=== PATIENT | female | born 1930 | race Caucasian/White ===

== ENCOUNTER 2016-08-27 16:25 | Inpatient (IN) | payer MEDICARE ==
[~2016-08-27] VITALS: Ht 149.9 cm; Wt 51.4 kg
[2016-08-27 12:25] VITALS: BP 150/67
[2016-08-27] MEDS ORDERED: MORPHINE 2 MG/ML 1ML SYRINGE As Ordered ONE (17:01)
[2016-08-27 17:16] LABS: BASO % 0.1 % (0.0-1.0); EOS % 0.4 % (0.0-3.0); LARGE UNSTAINED CELL # 0.1 K/mm3 (0.0-0.4); LARGE UNSTAINED CELL % 1.6 % (0.0-4.0); LYMPH # 0.9 K/mm3 (1.5-4.5); LYMPH % 10.7 % (24.0-44.0); MEAN CORPUSCULAR HEMOGLOBIN 32.4 pg (27.0-33.0); MEAN CORPUSCULAR HGB CONC 34.1 g/dl (32.0-36.5); MONO # 0.5 K/mm3 (0.0-0.8); MONO % 6.5 % (0.0-5.0); NEUTROPHILS # 6.8 K/mm3 (1.8-7.7); NEUTROPHILS % 80.7 % (36.0-66.0); RED CELL DISTRIBUTION WIDTH 12.2 % (11.5-14.5); WHITE BLOOD COUNT 8.4 K/mm3 (4.0-10.0)
[2016-08-27 17:30] LABS: PLATELET COUNT, AUTOMATED 92 k/mm3 (150-450)
[2016-08-27 17:31] LABS: CALCIUM LEVEL 8.5 MG/DL (8.8-10.2); CREATININE FOR GFR 1.48 MG/DL (0.55-1.02); GLOMERULAR FILTRATION RATE 35.6 (>32); POTASSIUM SERUM 4.2 MEQ/L (3.5-5.1)
--- NOTE | 2016-08-27 17:50 | REP ---
RIGHT HIP ONE-VIEW: 08/27/2016: Comparison: 02/09/2010. Single view shows intertrochanteric comminuted fracture. There is overlap of the distal major fragment with the femoral neck and displacement of the distal major fragment medially by a full shaft width as well as the avulsion and displacement of the lesser trochanter and rotation. Femoral head shows some mild flattening with degenerative changes including marked narrowing of the joint space larger rim osteophyte acetabulum and rim osteophytes femoral head. Vascular calcifications of the femoral artery noted. Pubic rami and acetabula without gross fracture. The right iliac bone and SI joint as well as the right aspect of the sacral ala intact. Impression: 1. Comminuted intertrochanteric fracture of the right hip with overlap of the distal major fragment of the subtrochanteric hip onto the inferior aspect of the femoral neck and avulsion with distraction and rotation of the lesser trochanter. Slight varus of the hip and advanced degenerative changes. No fracture of the femoral head or acetabulum. Signed by Andrew Oakley MD 08/27/2016 07:55 P
[2016-08-27] MEDS ORDERED: NS 1,000 ML IV SCH (18:07)
[2016-08-27] MEDS ORDERED: MOME50SP (18:29)
[2016-08-27] MEDS ORDERED: MELO15TA4 PO (18:29)
[2016-08-27] MEDS ORDERED: VITA200015 PO (18:31)
[2016-08-27] MEDS ORDERED: FISH1000 PO (18:31)
[2016-08-27] MEDS ORDERED: ASPI1TAB PO (18:31)
[2016-08-27] MEDS ORDERED: CALCTAB68 PO (18:31)
[2016-08-27] MEDS ORDERED: ATOR40TA PO (18:31)
[2016-08-27] MEDS ORDERED: BISO5TAB5 PO (18:32)
[2016-08-27] MEDS ORDERED: LISI-538 PO (18:32)
[2016-08-27] MEDS ORDERED: SYST1SOL OU (18:32)
[2016-08-27] MEDS ORDERED: ICAPCAP PO (18:32)
--- NOTE | 2016-08-27 18:42 | REP ---
RIGHT FEMUR SERIES, COMPLETE: 08/27/2016. Comparison: Single view right hip this date. Four views are provided including AP and lateral views of the mid to distal femur and two cross-table lateral views of the proximal femur and hip. There is a known comminuted intertrochanteric/subtrochanteric fracture of the hip with angulation and displacement. There is no subluxation or dislocation of the femoral head from the acetabulum. Remainder of the shaft of the femur is without a fracture. Bones are demineralized. Signed by Andrew Oakley MD 08/27/2016 07:55 P
--- NOTE | 2016-08-27 18:49 | REP ---
AP portable seated chest: 08/27/2016 Clinical history: Trauma. No prior pertinent study. Lungs are marginally adequate in the degree of inflation. There is no pleural effusion or acute infiltrate. Some minor basilar fibrotic changes are noted. No cardiomegaly, vascular redistribution or pulmonary edema. The aorta is calcified at the arch, mildly tortuous without aneurysm. Airway is intact. Skin fold projects over the left midchest. There is a linear artifact. Bones are demineralized with degenerative changes of the spine, shoulders and AC joints. No free air. Impression: 1. Bibasilar fibrotic change with borderline level of inflation, but no gross cardiomegaly, edema, effusion or dense consolidation. 2. Calcified aorta with some tortuosity but no aneurysm. 3. Bones demineralized. Signed by Andrew Oakley MD 08/27/2016 07:56 P
[2016-08-27] MEDS ORDERED: MORPHINE 4 MG/ML 1ML SYRINGE As Ordered ONE (19:24)
--- NOTE | 2016-08-27 19:28 | CR ---
DATE OF CONSULTATION: 08/27/2016 REASON FOR CONSULTATION: Right proximal femur fracture. HISTORY OF PRESENT ILLNESS: 85-year-old female who lives independently, otherwise fairly healthy, a patient of Dr. Marcus Parra who was running to get the telephone and tripped and fell where she lives in her home up in [facility], unable to get up, called her son on the phone, he came and got her, ambulance came brought her to [facility] evaluated by Dr. Ghosh, the emergency room physician and he called me when he found her to have a fracture of her proximal femur. The hospitalist is admitting her presently. She only complains of isolated soreness to her right hip area. Does not complain of any numbness or tingling of new onset as a result of her fall, did not lose consciousness, does not have neck pain, did not have any chest pain or shortness of breath that resulted in her fall or after her fall. This is clearly a trip and fall. Otherwise her past medical history is significant for hypercholesterolemia and asthma and macular degeneration, chronic thrombocytopenia, osteoporosis, history of a transient ischemic attack (TIA), and some left-sided sciatica and history of hematochezia in the past. Her past surgical history she has had a remote hysterectomy, she has had recent bilateral cataract surgeries. She does recall having a fracture of her ankle and a fracture of her wrist in the distant past treated with casts. She does not smoke, and does not drink alcohol. She is . She is here with one of her sons, originally she is from [facility]. Her son is retired . She does not normally use a walker or any ambulatory supports. ALLERGIES: Her allergies are to CODEINE causing nausea. MEDICATIONS AT HOME: - Mometasone nasal spray - meloxicam - baby aspirin - atorvastatin - vitamin D - calcium - Atrovent - I-caps - Systane - bisoprolol - lisinopril PHYSICAL EXAMINATION: I examined her. She is very pleasant, alert, spry 85-year-old slender female lying in her stretcher. She only complains of soreness in the right hip area in her thigh. VITAL SIGNS: Her vital signs she has a blood pressure of 160/62, with a pulse of 69, respirations 20, temperature is 99.2, oxygen sat 99% on room air. She weighs 49.44 kg. Body mass index is 22. HEENT: Was benign. She is normocephalic, atraumatic. NECK: Was non-tender. Clavicles are non-tender. EXTREMITIES: She can elevate both arms up over her head easily without any crepitance, deformity , pain or swelling or the shoulders, humeri, elbows, forearms, wrists or hands. There is no tenderness of her chest. Lower extremity examination showed a shortened right lower extremity with a strong dorsalis pedis pulse on both sides with excellent dorsiflexion, plantar flexion or motor strength of both ankles and toes and sensation was intact but she does say she has some numbness in her tips of her toes, but she says that is chronic for her, but she can otherwise feel me touch her feet both dorsally and plantarly with good pulses as mentioned. Her right thigh is tender around the hip and its tender and painful to deep palpation. LABORATORY DATA: Her laboratory studies shows a white blood count of 8.4 with a hematocrit of 26.5 with a platelet count of 92. Her glucose is 117, BUN 30, creatinine 1.48. Sodium was 145, potassium 4.2, chloride 111, bicarbonate 28, calcium 8.5. IMAGING: X-rays of her right femur and hip show a comminuted intertrochanteric subtrochanteric fracture with significant displacement and fracturing of the lesser trochanter. 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 IMPRESSION This is an 85-year-old otherwise fairly healthy independently ambulating female with a mechanical fall and an unstable displaced fracture of the proximal femur. I talked to her and I talked to her son about this and clearly this is a significant injury for her and I would recommend we try and fix her hip so we can get her comfortable as well as best chance of getting her back mobilized in a timely fashion, but that carries the risk of having surgery, which I discussed with her that there is a risk of infection, damage of nerves, blood vessels, anesthetic complications, heart attack, phlebitis, embolism amongst others associated with these types of surgeries and injuries and she understands that and she understands that she needs to have the surgery. She signed the consent and I discussed this with Dr. Eli, he was present during our discussion as well and he is evaluating her medically but feels that she is probably optimized to proceed with surgery and we will proceed when the operating room is available and she is felt safe to proceed.
--- NOTE | 2016-08-27 19:59 | HPEPDOC ---
General Date of Admission Aug 27, 2016 at 18:07 Chief Complaint The patient is a 85-year-old female Presented to the ER with complaints of right hip pain History of Present Illness Patient is a 85 year old female with a PMHx of HTN, DLP, CKD3, TIA (4- 5 years prior), Hx of Thrombocytopenia, Macular degeneration, Cataracts, who presented to the ER with right hip pain. Patient was at home and went to go answer the phone. She ran to the phone and bumped the table resulting in a fall. When she fell to the ground, she denies any head trauma or loss of consciousness. She noted that she was in excruciating pain and was unable to get back up. She rolled to the phone and called her son who brought her to the ER. Patient denies any chest pain, shortness of breath, cough, fever, chills, nausea , vomiting, abdominal pain, constipation, diarrhea or urinary symptoms. She notes that she has had a TIA about 5 years ago and was taken to [facility]. She is unsure why she had a stroke, but reported her symptoms of slurred speech had completely resolved. She has never had an AZ in the past, she also notes that she has not had a stress test in the past as well. At baseline, patient is able to go up and down a flight of stairs without shortness of breath or chest pain. She walks daily and has no limitations in her physical activity as she has reported. Home Medications Scheduled (Icaps) 1 Cap Cap 1 CAP PO DAILY (Reported) Aspirin (Aspirin 81) 81 Mg Tab 81 MG PO DAILY (Reported) Atorvastatin Calcium (Atorvastatin Calcium) 40 Mg Tab 40 MG PO QHS (Reported) Bisoprolol Fumarate (Bisoprolol Fumarate) 5 Mg Tab 5 MG PO DAILY (Reported) Calcium/Vitamin D (Calcium 600 + D 600-400 mg-Unit) 1 Tab Tab 1 TAB PO DAILY ( Reported) TAKES AT NOON Cholecalciferol (Vitamin D) 2,000 Unit Tab 2,000 UNIT PO DAILY (Reported) TAKES AT NOON Fish Oil (Fish Oil) 1,000 Mg Cap 1,000 MG PO DAILY (Reported) TAKES AT NOON Lisinopril (Lisinopril) 20 Mg Tab 20 MG PO DAILY (Reported) Meloxicam (Meloxicam) 15 Mg Tab 15 MG PO DAILY (Reported) NEW MEDICATION - HAS NOT STARTED YET Mometasone Furoate Monohydrate (Nasonex) 120 Loyal/17 Gm Naspr 2 SPRAY NA DAILY (Reported) NEW MEDICATION - HAS NOT STARTED YET Polyethylene Glycol (Systane 0.4-0.3 %) 15 Ml Talya 1 DROP OU QID (Reported) Allergies Coded Allergies: No Known Allergies (Unverified , 02/20/15) Past Medical History Medical History HTN, DLP, CKD3, TIA (4-5 years prior), Hx of Thrombocytopenia, Macular degeneration, Cataracts Surgical History Right arm surgery 3-4 years ago Left ankle (Fibula) Fracture Hysterectomy 1974 Bilateral cataract surgery <1 year prior Family History Family History Non-contributory Social History Social History - Denies the use of alcohol, tobacco or illicit drugs - Denies recent travel or sick contacts - Lives alone - Occupation; Worked in [employer] Review of Symptoms Other systems Constitutional: Denies weight loss, change in appetite, or recent trauma Eyes: No visual changes or eye pain Ears, Nose, Throat: Denies nose bleeds, or difficulty swallowing Cardiovascular: Denies chest pain, sweating, or orthopnea Respiratory: Denies cough, wheezing, or shortness of breath GI: Georges nausea, vomiting, abdominal pain, diarrhea or constipation : Denies pain with urination or frequency Musculoskeletal: Positive right hip pain Neuro / Psych: Denies muscle weakness or sensory loss Skin: No skin rashes noted All other review of systems negative; otherwise stated in history of present illness Vital Signs - Vitals: BP 160/62, HR 69, RR 20, Sat 99%RA, Temp 99.2F - General: Lying in bed, No acute distress, Speaking in full sentences, AAOx3 - HEENT: NC, AT, PERRLA, EOMI - CVS: RRR, +S1S2, - Lungs: Fair air entry bilaterally, Clear to auscultation, No wheezing / rales / rhonchi - Abdomen: Soft, Non-distended, Non-tender, + Bowel sounds x 4 - Extremities: + PPx4, No lower extremity edema, No calf tenderness - Hip: Right hip tenderness, decreased motion at right hip 2/2 pain - Neuro: No focal motor or sensory deficit - Skin: No visible rashes Laboratory Data Labs 24H Laboratory Tests 2 08/27/16 17:00: Anion Gap 6L, White Blood Count 8.4, Red Blood Count 3.84L, Hemoglobin 12.4, Hematocrit 36.5, Mean Corpuscular Volume 95.0, Mean Corpuscular Hemoglobin 32.4 , Mean Corpuscular Hemoglobin Concent 34.1, Red Cell Distribution Width 12.2, Platelet Count 92L, Neutrophils (%) (Auto) 80.7H, Lymphocytes (%) (Auto) 10.7L, Monocytes (%) (Auto) 6.5H, Eosinophils (%) (Auto) 0.4, Basophils (%) (Auto) 0.1 , Neutrophils # (Auto) 6.8, Lymphocytes # (Auto) 0.9L, Monocytes # (Auto) 0.5, Eosinophils # (Auto) 0.0, Basophils # (Auto) 0.0, Blood Urea Nitrogen 30H, Creatinine 1.48H, Sodium Level 145, Potassium Level 4.2, Chloride Level 111H, Carbon Dioxide Level 28, Calcium Level 8.5L, Glomerular Filtration Rate 35.6, Large Unclassified Cells # 0.1, Large Unclassified Cells % 1.6 CBC/BMP Laboratory Tests 08/27/16 17:00 Calcium Level 8.5 L, Red Blood Count 3.84 L, Mean Corpuscular Volume 95.0, Mean Corpuscular Hemoglobin 32.4, Mean Corpuscular Hemoglobin Concent 34.1, Red Cell Distribution Width 12.2, Neutrophils (%) (Auto) 80.7 H, Lymphocytes (%) (Auto) 10.7 L, Monocytes (%) (Auto) 6.5 H, Eosinophils (%) (Auto) 0.4, Basophils (%) ( Auto) 0.1, Neutrophils # (Auto) 6.8, Lymphocytes # (Auto) 0.9 L, Monocytes # ( Auto) 0.5, Eosinophils # (Auto) 0.0, Basophils # (Auto) 0.0 Plan / VTE VTE Prophylaxis Ordered?: Yes Plan Plan Right hip pain likely 2/2 comminuted intertrochanteric fracture of the right hip - Patient sustained a mechanical fall when she went to run for the phone - Denied head trauma, loss of consciousness or any symptoms prior or after the event - Physical reveals decreased range of motion and severe tenderness - Distal pulses intact and no distal deficits - XR R hip /: Comminuted intertrochanteric fracture of the right hp with overlap of the distal major fragment of the subtrochanteric hip - CXR 08/27: bibasilar fibrotic changes, no cardiomegaly, edema, effusion or consolidation, calcified aorta, no aneurysm - EKG with sinus bradycardia, no ST segment or T wave deviations - Case discussed with Dr. Marlyn Gr (Orthopedic) surgery; will go to OR today - Patient is currently medically optimized, and is a low surgical risk MIGUEL on CKD likely pre-renal etiology, possibly renal - Baseline Cr of 1.1, currently at 1.48 - Will check urine electrolytes and osmolality - Will hold Lisinorpil - Will c/w IV fluid hydration Hx of Thrombocytopenia - Platelet count currently is 92, Previous level of 135 (06/2015) - No evidence of bleeding at this time, will continue to monitor count HTN - will continue with home medications with holding parameters - Will c/w metoprolol, will hold Lisinopril (re: MIGUEL) DLP - c/w simvastatin TIA (4-5 years prior) - c/w aspirin Macular degeneration Cataracts - s/p surgery DVT prophylaxis - Will defer to orthopedic team Will sign out to SUSSY Jimenez MD Aug 27, 2016 19:59
--- NOTE | 2016-08-27 20:27 | EDDOCDS ---
Physician Documentation [facility] Name: Aruna Martinez Age: 85 yrs Sex: Female : 1930 Arrival Date: 08/27/2016 Time: 16:25 Bed 13 Private MD: Marcus Parra Disposition: 08/27/16 17:57 Hospitalization ordered by Errol Eli for Inpatient Admission. Preliminary diagnosis is Displaced intertrochanteric fracture of right femur. - Bed requested for 5 [place]. - Status is Inpatient Admission. sls1 - Condition is Stable. - Problem is new. - Symptoms are unchanged. Historical: - Allergies: codeine (Vomit); - Home Meds: 1. mometasone 50 mcg/actuation nasal spry 2 sprays once daily 2. meloxicam 15 mg oral tab 1 tab once daily 3. aspirin 81 mg Oral tab 1 tab once daily 4. atorvastatin 40 mg oral tab 1 tab once daily 5. Vitamin D Oral 2000 units daily 6. Calcium + Vitamin D 500 mg oral tab 7. vitamin C90-urjce acid 1000 mcg oral tab once daily 8. Atrovent 0.06 % Nasal spry q6h prn 9. Systane 0.4-0.3 % ophthalmic drop daily 10. ICaps AREDS 7,160-113-100 jhvm-yi-ohax oral TbEC daily 11. bisoprolol fumarate 5 mg oral tab 1 tab once daily (Last dose: 08/27/2016 08:00) 12. lisinopril 20 mg Oral tab 1 tab once daily - PMHx: Hypertension; TIA; Hypercholesterolemia; Osteoporosis; allergic rhinitis; thrombocytopenia; hematochezia; Macular Degeneration; left sided sciatica; - PSHx: Hysterectomy; Cataract Surgery- Bilateral; - Social history: Smoking status: Patient states was never smoker of tobacco. No barriers to communication noted, The patient speaks fluent Brazilian. - Family history: Not pertinent. - : The pt / caregiver states he / she is not on anticoagulants. Home medication list is obtained from the patient. - Exposure Risk Screening:: None identified. Vital Signs: 08/27 16:34 Resp 20; Temp 99.2(O); Weight 49.44 kg / 109 lbs (R); Height 4 ft. 11 in. (149.86 cm) jjr (R); Pain 7/10; 16:56 BP 160 / 62 RA Sitting (man/reg); Pulse 69; Pulse Ox 99% on R/A; jjr 18:15 BP 161 / 71 (auto/); jjr 18:16 Pulse 64 MON; Resp 18; Pulse Ox 99% on R/A; jjr 19:47 BP 199 / 94 (auto/); cf2 19:49 Pulse 86 MON; Pulse Ox 93% ; cf2 20:02 BP 188 / 88 (auto/); cf2 20:02 Pulse 80 MON; Pulse Ox 92% ; cf2 16:34 Body Mass Index 22.02 (49.44 kg, 149.86 cm) jjr MDM: 16:28 IV Saline Lock ordered. br1 16:28 Undress patient ordered. br1 16:28 morphine 2 mg IVP once; prn pain ordered. br1 16:29 CBC with Diff Ordered. EDMS 16:29 BMP Ordered. EDMS 16:51 Vital Signs ordered. br1 16:55 Hip,(1 View) Ordered. EDMS 16:55 Femur Ordered. EDMS 17:30 BED REQUEST+ADM ordered. EDMS 17:40 Chest, 1 View Ordered. EDMS 17:40 ECG WITH READING ER PHYS+CARDIAG ordered. EDMS 17:45 NS 0.9% 1000 ml IV at 100 mL/hr continuous ordered. br1 17:45 Conservation Specialist/Pulse Ox/q 30 min VS ordered. br1 17:47 Hip, Ap,Lat Ordered. EDMS 18:13 NPO DIET ordered. EDMS 18:14 SODIUM,RANDOM URINE Ordered. EDMS 18:14 CREATININE,RANDOM URINE Ordered. EDMS 18:14 OSMOLALITY,URINE Ordered. EDMS 18:16 Admission / Observation Status ordered. EDMS 18:20 Financial registration complete. gjb 19:06 [facility] Payment Agreement was scanned into [employer] and attached to record. gjb 19:18 morphine 4 mg IVP once ordered. br1 19:33 CBC WITH DIFFERENTIAL Ordered. EDMS 19:33 COMPLETE COMPHRENSIVE METABOLI Ordered. EDMS 19:33 MAGNESIUM LEVEL Ordered. EDMS Administered Medications: 17:06 Drug: morphine 2 mg [morphine 2 mg/mL intravenous cartridge (1 mL)] Route: IVP; Site: jr left antecubital; 18:22 Drug: NS 0.9% 1000 ml [sodium chloride 0.9 % intravenous solution] Route: IV; Rate: 100 ld5 mL/hr; Site: left antecubital; 19:28 Drug: morphine 4 mg [morphine 4 mg/mL intravenous cartridge (1 mL)] Route: IVP; Site: cf2 left antecubital; Signatures: Dispatcher [employer] Timothy Key MD MD br1 Greta Appiah RN RN jjr Strong, Shannon, RN RN [facility] Elham Bustamante Christina, RN RN cf2 Yogi Almanza RN RN sa Dickerson, Laura RN ld5 The chart was reviewed and I authenticate all verbal orders and agree with the evaluation and treatment provided.Attachments: 19:06 [facility] Payment Agreement amanda MTDD
--- NOTE | 2016-08-27 20:27 | EDDOCDS ---
Nurse's Notes [facility] Name: Aruna Martinez Age: 85 yrs Sex: Female : 1930 Arrival Date: 08/27/2016 Time: 16:25 Bed 13 Private MD: Marcus Parra Diagnosis: Displaced intertrochanteric fracture of right femur Presentation: 08/27 16:30 Presenting complaint: EMS states: fell from standing position while rushing to get the jjr telephone HOOK UP, immediate pain to right lateral thigh. 2.5 mg IV morphine at 1535 and 1542, 10# traction to right leg. Adult Sepsis Screening: The patient does not have new or worsening altered mentation. Patient's respiratory rate is less than 22. Systolic blood pressure is greater than 100. Patient has a qSOFA score of 0- Negative Sepsis Screen. Suicide/Homicide risk assessment- the patient denies having any suicidal and/or homicidal ideations and does not present with any other emotional, behavioral or mental health complaints. Status: Patient is not a customer service advisor or dependent. Transition of care: patient was not received from another setting of care. 16:30 Acuity: AMANDA Level 3 jjr 16:30 Method Of Arrival: Ambulance jjr Triage Assessment: 16:42 General: Appears in no apparent distress, slender, well nourished, well groomed, jjr Behavior is anxious, appropriate for age. Pain: Location: lateral aspect of right thigh. Musculoskeletal: Range of motion limited in right hip. Historical: - Allergies: codeine (Vomit); - Home Meds: 1. mometasone 50 mcg/actuation nasal spry 2 sprays once daily 2. meloxicam 15 mg oral tab 1 tab once daily 3. aspirin 81 mg Oral tab 1 tab once daily 4. atorvastatin 40 mg oral tab 1 tab once daily 5. Vitamin D Oral 2000 units daily 6. Calcium + Vitamin D 500 mg oral tab 7. vitamin [id number]-mhljp acid 1000 mcg oral tab once daily 8. Atrovent 0.06 % Nasal spry q6h prn 9. Systane 0.4-0.3 % ophthalmic drop daily 10. ICaps AREDS 7,160-113-100 [id number] oral TbEC daily 11. bisoprolol fumarate 5 mg oral tab 1 tab once daily (Last dose: 08/27/2016 08:00) 12. lisinopril 20 mg Oral tab 1 tab once daily - PMHx: Hypertension; TIA; Hypercholesterolemia; Osteoporosis; allergic rhinitis; thrombocytopenia; hematochezia; Macular Degeneration; left sided sciatica; - PSHx: Hysterectomy; Cataract Surgery- Bilateral; - Social history: Smoking status: Patient states was never smoker of tobacco. No barriers to communication noted, The patient speaks fluent Ukrainian. - Family history: Not pertinent. - : The pt / caregiver states he / she is not on anticoagulants. Home medication list is obtained from the patient. - Exposure Risk Screening:: None identified. Screenin:29 Fall Risk. jjr 18:24 Screening information is obtained from the patient. Fall risk: At risk due to injury, jjr The following interventions are performed due to a positive Fall Risk Screen: added to special handling. Abuse/DV Screen: The patient / caregiver reports he/she is: not in a situation that causes fear, pain or injury. Nutritional screening: No deficits noted. home support is adequate. 18:34 Assistance ADL's: requires no assistance with activities of daily living. Advance jjr Directives: Currently, there is a health care proxy, Yogi Martinez. There is no active DNR order. Assessment: 17:38 General: Appears in no apparent distress, slender, well nourished, well groomed, jjr Behavior is appropriate for age. Neurological: No deficits noted. Respiratory: Airway is patent Respiratory effort is even, unlabored, Respiratory pattern is regular. Derm: No deficits noted. Musculoskeletal: Range of motion limited in right hip Reports pain in lateral aspect of right thigh. 18:32 General: Appears in no apparent distress, Behavior is appropriate for age. jjr Neurological: No deficits noted. Cardiovascular: Rhythm is sinus rhythm. Respiratory: No deficits noted. Derm: No deficits noted. 20:11 Reassessment: Patient states symptoms have improved. Adult Sepsis Screening: The cf2 patient does not have new or worsening altered mentation. Patient's respiratory rate is less than 22. Systolic blood pressure is greater than 100. Patient has a qSOFA score of 0- Negative Sepsis Screen. Pain: Location: buttocks. EENT: No deficits noted. GI: No deficits noted. : No deficits noted. Vital Signs: 16:34 Resp 20; Temp 99.2(O); Weight 49.44 kg (R); Height 4 ft. 11 in. (149.86 cm) (R); Pain jjr 7/10; 16:56 BP 160 / 62 RA Sitting (man/reg); Pulse 69; Pulse Ox 99% on R/A; jjr 18:15 BP 161 / 71 (auto/); jjr 18:16 Pulse 64 MON; Resp 18; Pulse Ox 99% on R/A; jjr 19:47 BP 199 / 94 (auto/); cf2 19:49 Pulse 86 MON; Pulse Ox 93% ; cf2 20:02 BP 188 / 88 (auto/); cf2 20:02 Pulse 80 MON; Pulse Ox 92% ; cf2 16:34 Body Mass Index 22.02 (49.44 kg, 149.86 cm) jr Vitals: 16:34 Log In Time N/A - ambulance arrival. r ED Course: 16:26 Patient visited by Deborah Beasley PCA. rs6 16:26 Marcus Parra is Private Physician. rs6 16:26 Patient moved to Waiting rs6 16:26 Patient moved to 13 rs6 16:27 Timothy Ghosh MD is Attending Physician. br1 16:31 Patient visited by Timothy Ghosh MD. br1 16:32 Triage Initiated jjr 17:01 BMP Sent. jjr 17:01 CBC with Diff Sent. jjr 17:39 Patient visited by Greta Appiah, PERRY. jjr 17:57 Errol Eli is Hospitalizing Provider. br1 18:18 Patient visited by Paco Hobson PCA. jrd 18:18 EKG done. Reviewed by Errol Eli. jrd 18:22 ekg monitor tech on. Pulse ox on. NIBP on. ld5 18:23 Hip,(1 View) Returned. EDMS 18:33 Patient visited by Greta Appiah, PERRY. jjr 19:03 Amy Eason,RN is Primary Nurse. cf2 19:03 Patient visited by Amy Eason,PERRY. cf2 19:06 [facility] Payment Agreement was scanned into [employer] and attached to record. gjb 19:18 Femur Returned. EDMS 19:18 Chest, 1 View Returned. EDMS 19:49 The patient / caregiver is instructed regarding the plan of care and ED course. Patient cf2 has correct armband on for positive identification. Placed in gown. Bed in low position. Call light in reach. Side rails up X 1. Side rails up X2. Property :Personal belongings accompany Pt. Door closed. Noise minimized. Visitors limited. Lights dimmed. Moved to private room. Verbal reassurance given. Warm blanket given. Pillow given. Head of bed elevated. Diet: Patient is NPO. 20:12 Inserted saline lock: 18 gauge in left antecubital area and blood collected. The cf2 patient tolerated the procedure well. No procedures done that require assistance. Administered Medications: 17:06 Drug: morphine 2 mg [morphine 2 mg/mL intravenous cartridge (1 mL)] Route: IVP; Site: jjr left antecubital; 18:22 Drug: NS 0.9% 1000 ml [sodium chloride 0.9 % intravenous solution] Route: IV; Rate: 100 ld5 mL/hr; Site: left antecubital; 19:28 Drug: morphine 4 mg [morphine 4 mg/mL intravenous cartridge (1 mL)] Route: IVP; Site: cf2 left antecubital; Order Results: Lab Order: CBC with Diff; SPEC'M 08/27/16 17:00 Test: WHITE BLOOD COUNT; Value: 8.4; Range: 4.0-10.0; Units: K/mm3; Status: F Test: RED BLOOD COUNT; Value: 3.84; Range: 4.00-5.40; Abnormal: Below low normal; Units: M/mm3; Status: F Test: HEMOGLOBIN; Value: 12.4; Range: 12.0-16.0; Units: g/dl; Status: F Test: HEMATOCRIT; Value: 36.5; Range: 36.0-47.0; Units: %; Status: F Test: MEAN CORPUSCULAR VOLUME; Value: 95.0; Range: 80.0-96.0; Units: fl; Status: F Test: MEAN CORPUSCULAR HEMOGLOBIN; Value: 32.4; Range: 27.0-33.0; Units: pg; Status: F Test: MEAN CORPUSCULAR HGB CONC; Value: 34.1; Range: 32.0-36.5; Units: g/dl; Status: F Test: RED CELL DISTRIBUTION WIDTH; Value: 12.2; Range: 11.5-14.5; Units: %; Status: F Test: PLATELET COUNT, AUTOMATED; Value: 92; Range: 150-450; Abnormal: Below low normal; Units: k/mm3; Status: F Test: NEUTROPHILS %; Value: 80.7; Range: 36.0-66.0; Abnormal: Above high normal; Units: %; Status: F Test: LYMPH %; Value: 10.7; Range: 24.0-44.0; Abnormal: Below low normal; Units: %; Status: F Test: MONO %; Value: 6.5; Range: 0.0-5.0; Abnormal: Above high normal; Units: %; Status: F Test: EOS %; Value: 0.4; Range: 0.0-3.0; Units: %; Status: F Test: BASO %; Value: 0.1; Range: 0.0-1.0; Units: %; Status: F Test: LARGE UNSTAINED CELL %; Value: 1.6; Range: 0.0-4.0; Units: %; Status: F Test: NEUTROPHILS #; Value: 6.8; Range: 1.8-7.7; Units: K/mm3; Status: F Test: LYMPH #; Value: 0.9; Range: 1.5-4.5; Abnormal: Below low normal; Units: K/mm3; Status: F Test: MONO #; Value: 0.5; Range: 0.0-0.8; Units: K/mm3; Status: F Test: EOS #; Value: 0.0; Range: 0.0-0.50; Units: K/mm3; Status: F Test: BASO #; Value: 0.0; Range: 0.0-0.2; Units: K/mm3; Status: F Test: LARGE UNSTAINED CELL #; Value: 0.1; Range: 0.0-0.4; Units: K/mm3; Status: F Lab Order: [facility]; SPEC'M 08/27/16 17:00 Test: GLUCOSE, FASTING; Value: 117; Range: 83-110; Abnormal: Above high normal; Units: MG/DL; Status: F Test: BLOOD UREA NITROGEN; Value: 30; Range: 7-18; Abnormal: Above high normal; Units: MG/DL; Status: F Test: CREATININE FOR GFR; Value: 1.48; Range: 0.55-1.02; Abnormal: Above high normal; Units: MG/DL; Status: F Test: GLOMERULAR FILTRATION RATE; Value: 35.6; Range: >32; Status: F Test: SODIUM LEVEL; Value: 145; Range: 136-145; Units: MEQ/L; Status: F Test: POTASSIUM SERUM; Value: 4.2; Range: 3.5-5.1; Units: MEQ/L; Status: F Test: CHLORIDE LEVEL; Value: 111; Range: 98-107; Abnormal: Above high normal; Units: MEQ/L; Status: F Test: CARBON DIOXIDE LEVEL; Value: 28; Range: 21-32; Units: MEQ/L; Status: F Test: ANION GAP; Value: 6; Range: 8-16; Abnormal: Below low normal; Units: MEQ/L; Status: F Test: CALCIUM LEVEL; Value: 8.5; Range: 8.8-10.2; Abnormal: Below low normal; Units: MG/DL; Status: F Test Note: ; Units are mL/min/1.73 m2 Chronic Kidney Disease Staging per NKF: Stage I & II GFR >=60 Normal to Mildly Decreased Stage III GFR 30-59 Moderately Decreased Stage IV GFR 15-29 Severely Decreased Stage V GFR <15 Very Little GFR Left ESRD GFR <15 on LOSS PREVENTION RESEARCH ENGINEER Radiology Order: Hip,(1 View) Test: Hip,(1 View) REASON FOR EXAMINATION: Trauma; RIGHT HIP ONE-VIEW: 08/27/2016:; ; Comparison: 02/09/2010.; ; Single view shows intertrochanteric comminuted fracture. There is overlap of the; distal major fragment with the femoral neck and displacement of the distal major; fragment medially by a full shaft width as well as the avulsion and displacement; of the lesser trochanter and rotation. Femoral head shows some mild flattening; with degenerative changes including marked narrowing of the joint space larger; rim osteophyte acetabulum and rim osteophytes femoral head. Vascular; calcifications of the femoral artery noted. Pubic rami and acetabula without; gross fracture. The right iliac bone and SI joint as well as the right aspect of; the sacral ala intact.; ; Impression:; ; 1. Comminuted intertrochanteric fracture of the right hip with overlap of the; distal major fragment of the subtrochanteric hip onto the inferior aspect of the; femoral neck and avulsion with distraction and rotation of the lesser trochanter.; Slight varus of the hip and advanced degenerative changes. No fracture of the; femoral head or acetabulum.; ; ; Signed by; Andrew Oakley MD 08/27/2016 07:55 P; Radiology Order: Femur Test: Femur REASON FOR EXAMINATION: Trauma; RIGHT FEMUR SERIES, COMPLETE: 08/27/2016.; ; Comparison: Single view right hip this date.; ; Four views are provided including AP and lateral views of the mid to distal femur; and two cross-table lateral views of the proximal femur and hip. There is a; known comminuted intertrochanteric/subtrochanteric fracture of the hip with; angulation and displacement. There is no subluxation or dislocation of the; femoral head from the acetabulum. Remainder of the shaft of the femur is without; a fracture. Bones are demineralized.; ; ; Signed by; Andrew Oakley MD 08/27/2016 07:55 P; Radiology Order: Chest, 1 View Test: Chest, 1 View REASON FOR EXAMINATION: pre-op; AP portable seated chest: 08/27/2016; ; Clinical history: Trauma.; ; No prior pertinent study.; ; Lungs are marginally adequate in the degree of inflation. There is no pleural; effusion or acute infiltrate. Some minor basilar fibrotic changes are noted. No; cardiomegaly, vascular redistribution or pulmonary edema. The aorta is calcified; at the arch, mildly tortuous without aneurysm. Airway is intact. Skin fold; projects over the left midchest. There is a linear artifact. Bones are; demineralized with degenerative changes of the spine, shoulders and AC joints.; No free air.; ; Impression:; ; 1. Bibasilar fibrotic change with borderline level of inflation, but no gross; cardiomegaly, edema, effusion or dense consolidation.; ; 2. Calcified aorta with some tortuosity but no aneurysm.; ; 3. Bones demineralized.; ; ; Signed by; Andrew Oakley MD 08/27/2016 07:56 P; Outcome: 17:57 Decision to Hospitalize by Provider. br1 20:14 Discharge Assessment: Patient awake, alert and oriented x 3. No cognitive and/or cf2 functional deficits noted. Patient verbalized understanding of disposition instructions. Patient awake and alert. patient administered narcotics - yes. Patient was admitted to the hospital or transferred to another facility. The following High Risk Discharge criteria are identified: None. Admitted to OR. Condition: good. No special radiology studies were completed. Property :Personal belongings accompany Pt. 20:26 Patient left the ED. sls1 Signatures: Dispatcher [employer] EDMS Timothy Ghosh MD MD br1 Greta Appiah, RN RN Julisa GilmoreRN RN ld5 Abril Noyola RN RN sls1 Paco Hobson, SENIOR APPLICATIONS DEVELOPER SENIOR APPLICATIONS DEVELOPER jrd Deborah Beasley, SENIOR APPLICATIONS DEVELOPER SENIOR APPLICATIONS DEVELOPER rs6 Elham Bustamante Christina,RN RN cf2 Corrections: (The following items were deleted from the chart) 18:18 18:17 EKG done. (by ED staff). Reviewed by Timothy ruiz jrd BAKARI
[2016-08-27] MEDS ORDERED: ceFAZolin 1GM INJ (J0690) As Ordered ONE (21:04)
[2016-08-27] MEDS ORDERED: GLYCOPYRROLATE INJ 0.2 MG/ML 2 ML VIAL As Ordered ONE (21:54)
[2016-08-27] MEDS ORDERED: MIDAZOLAM INJ 2 MG/2 ML VIAL (J2250) As Ordered ONE (21:54)
[2016-08-27] MEDS ORDERED: PROPOFOL 200 MG/20 ML VIAL As Ordered ONE (21:54)
[2016-08-27] MEDS ORDERED: ePHEDrine SULFATE 25 MG/5 ML(5MG/ML) SYRINGE As Ordered ONE (21:54)
[2016-08-27] MEDS ORDERED: fentaNYL 250 MCG/5 ML INJECTION (J3010) As Ordered ONE (21:54)
[2016-08-27] MEDS ORDERED: LIDOCAINE 2% INJ 100 MG/5 ML SDV (FOR ANES.) As Ordered ONE (21:54)
[2016-08-27] MEDS ORDERED: ROCURONIUM BROMIDE 50 MG/5 ML VIAL As Ordered ONE (21:54)
[2016-08-27] MEDS ORDERED: NEOSTIGMINE 1MG/ML 5 ML SYRINGE (J2710) As Ordered ONE (21:54)
[2016-08-27] MEDS ORDERED: ONDANSETRON 4MG/2ML VIAL (J2405) As Ordered ONE ×2 (22:01→23:54)
[2016-08-27] MEDS ORDERED: dexameTHASONE 4 MG/ML 1ML VIAL (J1100) As Ordered ONE ×2 (22:01)
[2016-08-27] MEDS ORDERED: ceFAZolin 1GM INJ (J0690) IR ONE (22:03)
[2016-08-27] MEDS ORDERED: ceFAZolin 1GM INJ (J0690) IV ONE (22:05)
[2016-08-27] MEDS ORDERED: HYDROmorphone HCL 1 MG/ML SYRINGE (J1170) IV PRN ×2 (23:45)
[2016-08-27] MEDS ORDERED: WARFARIN SOD 5 MG TAB PO ONE (23:45)
[2016-08-27] MEDS ORDERED: LR 1,000 ML IV SCH (23:45)
[2016-08-27] MEDS ORDERED: ONDANSETRON 4MG/2ML VIAL (J2405) IV PRN (23:45)
[2016-08-27] MEDS ORDERED: fentaNYL 100 MCG/2 ML INJECTION (J3010) IV PRN (23:45)
[2016-08-27] MEDS ORDERED: fentaNYL 100 MCG/2 ML INJECTION (J3010) As Ordered ONE (23:54)
[2016-08-28] VITALS (10 sets, daily range): BP systolic 91–150; BP diastolic 44–67
[2016-08-28] MEDS: SENOKOT S TAB PO SCH ×3 (02:12→21:53)
[2016-08-28] MEDS: ATORVASTATIN 20 MG TAB PO SCH ×2 (02:12→21:53)
[2016-08-28] MEDS: ACETAMINOPHEN TAB 650MG DOSE (2X325MG) PO PRN (06:03)
[2016-08-28] MEDS: ceFAZolin SOD 1 GM in D5W MINI-BAG PLUS 50 ML IV SCH ×3 (06:05→22:01)
[2016-08-28 06:52] LABS: LARGE UNSTAINED CELL % 0.3 % (0.0-4.0); LYMPH # 0.5 K/mm3 (1.5-4.5); LYMPH % 3.7 % (24.0-44.0); MEAN CORPUSCULAR HEMOGLOBIN 31.7 pg (27.0-33.0); MEAN CORPUSCULAR HGB CONC 33.1 g/dl (32.0-36.5); MEAN CORPUSCULAR VOLUME 95.8 fl (80.0-96.0); MONO # 0.3 K/mm3 (0.0-0.8); MONO % 1.9 % (0.0-5.0); NEUTROPHILS # 13.5 K/mm3 (1.8-7.7); NEUTROPHILS % 94.1 % (36.0-66.0); PLATELET COUNT, AUTOMATED 100 k/mm3 (150-450); RED CELL DISTRIBUTION WIDTH 12.4 % (11.5-14.5); WHITE BLOOD COUNT 14.3 K/mm3 (4.0-10.0)
[2016-08-28 06:55] LABS: INR 1.17
[2016-08-28] MEDS: ONDANSETRON 4 MG TAB (S0181) PO PRN (07:24)
--- NOTE | 2016-08-28 07:30 | RO ---
DATE OF PROCEDURE: 08/27/2016 PREPROCEDURE DIAGNOSIS: Right proximal intertrochanteric subtrochanteric femur fracture. POSTPROCEDURE DIAGNOSIS: Right proximal intertrochanteric subtrochanteric femur fracture. PROCEDURE: Open reduction internal fixation with long trochanteric femoral nail with two distal interlocks right proximal femur subtrochanteric intertrochanteric fracture. SURGEON: Dr. Sandra Flower CORPORATE STRATEGY INTERN: ANESTHESIA: General endotracheal tube anesthesia. COMPLICATIONS: None. ESTIMATED BLOOD LOSS: 150 mL. SPECIMENS: None. FINDINGS: She had a significant flexion contracture of the hip secondary to osteoarthritis making reduction difficult. She also had a very significant butterfly fragment anteriorly involving a large portion of the greater trochanter. PROCEDURE: Antibiotics were given intravenously preoperatively and successful general endotracheal tube anesthetic was established. She was given 1 gram of Kefzol and a Guzman catheter was established. Then she was placed onto the fracture table and closed reduction of the fracture was obtained. It was noteworthy that there was some significant posterior sag and the proximal fragment was significantly flexed with a large butterfly fragment and some significant comminution right at the base of the femoral neck. This comminution extended down below the lesser trochanter. We were able to get a reasonable reduction using a crutch to help as well as having to elevate the distal fragment to match the flexion deformity of her proximal fragment and eventually will get a reasonable reduction. The right hip area was then prepped and draped in the usual sterile fashion. Then after appropriate time out again, a small 2 inch incision was made above the greater trochanter. Bovie cautery was used to coagulate crossing vessels down to the tensor fascia, it was then divided and aligned with the skin incision. Then the starter awl was utilized to try to get at the tip of the trochanter but I had to go back and fourth between the anterior and the lateral views in order to get an adequate starting point near the anterior one-third, posterior two-third junction of the trochanter as well as I had to also simultaneously manipulate the fracture with my elbow and my other right hand. As I advanced the ball tip guide kylah through the starter awl to eventually able to get across the fracture site. I confirmed that I was down the center of the femoral shaft down toward the knee by the fluoroscopic imaging in AP and lateral planes. We then estimated the length of the kylah. 320 mm seemed to be the appropriate length. I drilled the proximal starter hole with the large reamer but I did not advance it all the way down to the lesser trochanter because of the comminuted nature of the proximal portions of the fracture. At this point, I did ream up to 12 mm. The kylah was then loaded on the insertion handle on the back table, then I inserted the kylah easily across the fracture site. Then we estimated the insertion depth to match the femoral neck. Then the proximal drill sleeve for the cephalic portion of the femoral nail was inserted on the handle and then a small skin incision was made down to the bone, then I advanced the drill sleeve and then I advanced the threaded guidewire up the femoral neck on the AP and then on the lateral planes. We required a bit of manipulation of this wire to finally get in close to the center of the femoral head just slightly oblique across the femoral neck because of the flexion contracture of the proximal femur but I could not get it absolutely parallel perfect, but I got a very reasonable bite and alignment into the femoral neck and femoral head. Once I confirmed the depth on the AP and lateral planes, we elected to drill to 95 and use a 95 mm long twisty nail. I then drilled under fluoroscopic guidance and then the 95 mm length twisty blade was inserted. Then I confirmed good position, the locked it proximally and I did not back it off so it would not slide. I then removed the insertion handle, got good x-rays to make sure we were in good position. The fracture was reasonably well reduced. On the lateral view, there was a butterfly fragment that kicked out anteriorly as if there was a flexion contracture component but I felt the overall alignment of the construct was very reasonable, I did not elect to open the fracture site nor to reduce that. I felt this should heal uneventfully. We then obtained perfect circles on the distal interlocking screws and I elected to use the proximal static interlock and then the dynamic interlock. Once I got good alignment, I used a free hand technique using the fluoroscope to make small stab incision and drilled across the interlock holes distally, first the proximal static hole and then the more distal dynamic hole. I measured and then placed the screws and confirmed good position in AP and lateral planes. The traction was reduced slightly before I put the distal interlocks in and I held her foot in neutral rotation. Satisfied with the overall alignment and the position of the hardware, I then copiously irrigated the wounds. Proximally I closed the tensor fascia with interrupted #1 PDS sutures, subdermal tissues were closed with interrupted #2-0 PDS suture and then the skin incisions were closed with marcial covered by Adaptic dry sterile bulky dressing. She was then awakened from general endotracheal tube anesthesia and then transferred off the fracture table to her bed and to recovery room in stable condition. There were no intraoperative complications.
[2016-08-28] MEDS: OCUVITE 1 TAB PO SCH (09:00)
[2016-08-28 09:03] LABS: ALBUMIN 2.5 GM/DL (3.2-5.2); BILIRUBIN,TOTAL 0.4 MG/DL (0.2-1.0); CALCIUM LEVEL 7.6 MG/DL (8.8-10.2); CREATININE FOR GFR 1.79 MG/DL (0.55-1.02); GLOMERULAR FILTRATION RATE 28.6 (>32); MAGNESIUM LEVEL 1.9 MG/DL (1.8-2.4); POTASSIUM SERUM 4.9 MEQ/L (3.5-5.1)
[2016-08-28] MEDS: traMADol 50 MG TAB PO PRN ×3 (09:58→21:54)
[2016-08-28] MEDS: ASPIRIN 81 MG ENTERIC TAB PO SCH (09:58)
[2016-08-28] MEDS: BISOPROLOL FUMARATE 5 MG TAB PO SCH (09:59)
[2016-08-28] MEDS: MIRALAX *UNIT DOSE* 17GM PACKET PO SCH (10:00)
--- NOTE | 2016-08-28 10:50 | ECGEPIP ---
Stationary ECG Study [facility] - ED Test Date: 2016-08-27 Pat Name: LIZETTE WILSON Department: Room: [place] [address] Gender: F Store Promoter: joseph : [id number] Requested By: ALYSSA Flores Order Number: [id number] Reading MD: Kristin Barbosa Measurements Intervals [place] Rate: 58 P: 61 OR: 118 QRS: 48 QRSD: 80 T: 70 QT: 413 QTc: 409 Interpretive Statements SINUS BRADYCARDIA WITH SHORT OR INTERVAL POSSIBLE LEFT ATRIAL ENLARGEMENT NSTTW ABNORMALITY NO PRIOR FOR COMPARISON Electronically Signed On 08-28-2016 10:50:31 EST by Kristin Barbosa
[2016-08-28] MEDS ORDERED: NS 1,000 ML IV SCH (11:00)
--- NOTE | 2016-08-28 11:28 | REP ---
Right hip: Five views. History: Right hip fracture. 2 minutes 53 seconds of fluoroscopy time is reported. Findings: A sequence of five fluoroscopically obtained last image hold spot radiographs of the right femur document intramedullary kylah and pin fixation of right proximal femur fracture. Signed by Pradeep Hernandez MD 08/28/2016 11:46 A
--- NOTE | 2016-08-28 11:39 | IPN ---
DATE: 08/28/2016 85-year-old female seen at bedside. No overnight issues reported. Resting comfortably. No chest pain. No nausea, vomiting. No shortness breath. OBJECTIVE: Temperature is 98.3, pulse 76 and regular, respiratory rate 16, blood pressure (BP) 142/65, SpO2 is 95% on room air. General: The patient appears to be in no acute distress, is alert and oriented. HEENT: Unremarkable. Lungs: Clear. Heart: Regular rate and rhythm. Abdomen: Soft. Extremities: no edema, no calf tenderness White count 14.3, hemoglobin 9.4, and platelets 100,000. Sodium is 146, potassium 4.9, chloride 113, bicarbonate 22, anion gap 11, BUN is 33, creatinine is 1.79, glucose is 200, AST 24, ALT 21, alkaline phosphatase 45. INR 1.17. ASSESSMENT AND PLAN: 1. Right hip fracture status post repair. This was secondary to a mechanical fall and she is postoperative day #1. Appreciate orthopedics' input regarding, pain control, bowel regimen, as well as anticoagulation. 2. Acute kidney injury superimposed chronic kidney disease (CKD). She does have a little bit of worsening of her creatinine. We will go ahead and continue to hold her lisinopril. We will give her some normal saline at 80 mL/hr for one more liter and try to avoid nephrotoxic drugs. Her baseline however, does appear to be at 1.1 with her creatinine. We will follow this daily 3. History of thrombocytopenia. No evidence of bleeding. We will continue to monitor. 4. Hypertension, stable. Lisinopril was currently on hold due to a acute kidney injury (MIGUEL). We will continue with metoprolol and hold parameters. 5. Dyslipidemia. Continue on simvastatin 6. History of transient ischemic attack (TIA). No significant deficits. Continue with aspirin. 7. Macular degeneration, stable. 8. Cataracts status post surgery. 9. Deep venous thrombosis (DVT) prophylaxis. Per orthopedics. DISPOSITION: Would anticipate physical therapy to be involved with her in the next 24 hours. We will continue to monitor her renal profile and try to avoid nephrotoxic drugs as outlined above. She appears to be getting along well otherwise. [facility]
[2016-08-28] MEDS: ONDANSETRON 4MG/2ML VIAL (J2405) IV PRN ×2 (12:20→22:01)
--- NOTE | 2016-08-28 12:35 | REP ---
Right hip : Two views. History: Trochanteric nail. Right hip. Comparison study : August 27, 2016. Findings: An intramedullary kylah and femoral neck screw are seen in place transfixing the subtrochanteric fracture of the right femur. There is postoperative air in the adjacent soft tissues and lateral skin marcial are seen. Moderate osteoarthritis is seen in the right hip. Signed by Pradeep Hernandez MD 08/28/2016 07:25 P
--- NOTE | 2016-08-28 12:36 | REP ---
Right femur series: Two views. History: Open reduction internal fixation. Findings: AP and lateral views of the right femur demonstrate an intramedullary kylah in place with two transverse fixation screws. Lateral skin marcial are seen. Diffuse osteopenia is noted. Signed by Pradeep Hernandez MD 08/28/2016 07:25 P
[2016-08-28] MEDS ORDERED: MOBI15TA PO (13:05)
[2016-08-28] MEDS: FLUTICASONE PROP 0.05% NASAL SPRAY 16 GM (FLONASE) SCH (14:19)
[2016-08-28] MEDS: VITAMIN D 1,000 INTERNATIONAL UNITS TABLET PO SCH (14:22)
[2016-08-28] MEDS: POLYVINYL ALCOHOL OPHTH SOLN 15 ML(LIQUITEARS) OU SCH (16:38)
[2016-08-28] MEDS ORDERED: WARFARIN SOD 5 MG TAB PO ONE (17:00)
[2016-08-28] MEDS: CEPACOL LOZENGE PO PRN (17:06)
[2016-08-29] VITALS (7 sets, daily range): BP systolic 92–129; BP diastolic 42–76
[2016-08-29] MEDS: ONDANSETRON 4 MG TAB (S0181) PO PRN ×2 (06:37→13:33)
[2016-08-29] MEDS: CEPACOL LOZENGE PO PRN (06:38)
[2016-08-29 06:44] LABS: BASO % 0.1 % (0.0-1.0); EOS # 0.1 K/mm3 (0.0-0.50); EOS % 0.5 % (0.0-3.0); LARGE UNSTAINED CELL # 0.2 K/mm3 (0.0-0.4); LARGE UNSTAINED CELL % 1.1 % (0.0-4.0); LYMPH # 1.3 K/mm3 (1.5-4.5); LYMPH % 8.1 % (24.0-44.0); MEAN CORPUSCULAR HEMOGLOBIN 31.4 pg (27.0-33.0); MEAN CORPUSCULAR HGB CONC 32.3 g/dl (32.0-36.5); MEAN CORPUSCULAR VOLUME 97.3 fl (80.0-96.0); MONO # 0.9 K/mm3 (0.0-0.8); MONO % 5.5 % (0.0-5.0); NEUTROPHILS # 13.3 K/mm3 (1.8-7.7); NEUTROPHILS % 84.7 % (36.0-66.0); RED CELL DISTRIBUTION WIDTH 12.8 % (11.5-14.5); WHITE BLOOD COUNT 15.6 K/mm3 (4.0-10.0)
[2016-08-29 06:50] LABS: INR 2.15
[2016-08-29 07:04] LABS: ALBUMIN 2.4 GM/DL (3.2-5.2); BILIRUBIN,TOTAL 0.2 MG/DL (0.2-1.0); CALCIUM LEVEL 7.2 MG/DL (8.8-10.2); CREATININE FOR GFR 2.24 MG/DL (0.55-1.02); GLOMERULAR FILTRATION RATE 22.1 (>32); MAGNESIUM LEVEL 2.1 MG/DL (1.8-2.4); POTASSIUM SERUM 4.9 MEQ/L (3.5-5.1); TOTAL PROTEIN 4.8 GM/DL (6.4-8.2)
[2016-08-29 07:07] LABS: PLATELET COUNT, AUTOMATED 95 k/mm3 (150-450)
--- NOTE | 2016-08-29 08:09 | IPN ---
DATE: 08/29/2016 85-year-old female seen at bedside. No overnight issues reported. She feels that her throat is a little better from having general anesthesia, able to swallow and she is tolerating her breakfast meal today. She denies chest pain, lightheadedness, shortness breath, no nausea or vomiting. OBJECTIVE: Temperature is 98.6, pulse 82, respiratory rate 18, blood pressure 102/55, SpO2 is 91% on room air. GENERAL: The patient appears to be in no acute distress. She is pleasant to talk to. HEENT: Unremarkable. LUNGS: Clear. HEART: Regular rate and rhythm. ABDOMEN: Soft. EXTREMITIES: No edema. No calf tenderness. No motor or sensory deficits. LABORATORIES: White count 15.6, hemoglobin 6.8, hematocrit 21.1. We will repeat her hemoglobin and hematocrit since there has been a dramatic drop since yesterday. Platelets are 95,000. INR is 2.15. ASSESSMENT/PLAN: 1. Right hip fracture status post repair, day 2. Appreciate orthopedics input regarding pain control, bowel regimen and anticoagulation. 2. Acute anemia, possibly blood loss related to her hip fracture. I would like to repeat her hemoglobin and hematocrit today. If this is confirmed that she has had a greater than 3-1/2 gram drop, I will want to go ahead and transfuse her 1-2 units of packed red blood cells. 3. Acute kidney injury superimposed on chronic kidney disease. We did give her some IV normal saline. We are avoiding nephrotoxic drugs. However, if she is having an acute drop in her hemoglobin and hematocrit, this could account for further worsening of her renal function. At any rate, we will reevaluate with a repeat hemoglobin and hematocrit immediately and plan on transfusion. 4. History of thrombocytopenia. No evidence of bleeding currently. We will continue to monitor. 5. Hypertension stable. Lisinopril was currently on hold due to acute kidney injury. Metoprolol has hold parameters. 6. Dyslipidemia. Continue simvastatin. 7. History of transient ischemic attack (TIA). Continue aspirin. 8. Macular degeneration. Stable. 9. Cataracts. Status post surgery. 10. Deep vein thrombosis (DVT) prophylaxis per orthopedics. DISPOSITION: As outlined above, will repeat hemoglobin and hematocrit and determine if we need to do a blood transfusion today.
[2016-08-29] MEDS: ASPIRIN 81 MG ENTERIC TAB PO SCH (08:34)
[2016-08-29] MEDS: SENOKOT S TAB PO SCH ×2 (08:35→20:21)
[2016-08-29] MEDS: OCUVITE 1 TAB PO SCH (08:35)
[2016-08-29] MEDS: BISOPROLOL FUMARATE 5 MG TAB PO SCH (08:36)
[2016-08-29] MEDS: ACETAMINOPHEN TAB 650MG DOSE (2X325MG) PO PRN (08:36)
[2016-08-29] MEDS: POLYVINYL ALCOHOL OPHTH SOLN 15 ML(LIQUITEARS) OU SCH (08:36)
[2016-08-29] MEDS: MIRALAX *UNIT DOSE* 17GM PACKET PO SCH (08:36)
[2016-08-29] MEDS: FLUTICASONE PROP 0.05% NASAL SPRAY 16 GM (FLONASE) SCH (08:36)
[2016-08-29 08:55] LABS: RETIC HEMOGLOBIN CONTENT CHr 34.2 PG (24-36); RETICULOCYTE % ADVIA2120 4.5 % (0.5-1.5)
[2016-08-29] MEDS: VITAMIN D 1,000 INTERNATIONAL UNITS TABLET PO SCH ×2 (12:00→13:32)
[2016-08-29] MEDS: traMADol 50 MG TAB PO PRN (13:31)
[2016-08-29] MEDS ORDERED: WARFARIN SOD 1 MG TAB PO ONE (17:00)
[2016-08-29] MEDS: ATORVASTATIN 20 MG TAB PO SCH (20:22)
--- NOTE | 2016-08-29 21:27 | EDDOCDS ---
Physician Documentation [facility] Name: Aruna Martinez Age: 85 yrs Sex: Female : 1930 Arrival Date: 08/27/2016 Time: 16:25 Bed 13 Private MD: Marcus Parra Disposition: 08/27/16 17:57 Hospitalization ordered by Errol Eli for Inpatient Admission. Preliminary diagnosis is Displaced intertrochanteric fracture of right femur. - Bed requested for 5 [place]. - Status is Inpatient Admission. sls1 - Condition is Stable. - Problem is new. - Symptoms are unchanged. Historical: - Allergies: codeine (Vomit); - Home Meds: 1. mometasone 50 mcg/actuation nasal spry 2 sprays once daily 2. meloxicam 15 mg oral tab 1 tab once daily 3. aspirin 81 mg Oral tab 1 tab once daily 4. atorvastatin 40 mg oral tab 1 tab once daily 5. Vitamin D Oral 2000 units daily 6. Calcium + Vitamin D 500 mg oral tab 7. vitamin L86-nstqj acid 1000 mcg oral tab once daily 8. Atrovent 0.06 % Nasal spry q6h prn 9. Systane 0.4-0.3 % ophthalmic drop daily 10. ICaps AREDS 7,160-113-100 acng-nm-bobm oral TbEC daily 11. bisoprolol fumarate 5 mg oral tab 1 tab once daily (Last dose: 08/27/2016 08:00) 12. lisinopril 20 mg Oral tab 1 tab once daily - PMHx: Hypertension; TIA; Hypercholesterolemia; Osteoporosis; allergic rhinitis; thrombocytopenia; hematochezia; Macular Degeneration; left sided sciatica; - PSHx: Hysterectomy; Cataract Surgery- Bilateral; - Social history: Smoking status: Patient states was never smoker of tobacco. No barriers to communication noted, The patient speaks fluent Albanian. - Family history: Not pertinent. - : The pt / caregiver states he / she is not on anticoagulants. Home medication list is obtained from the patient. - Exposure Risk Screening:: None identified. Vital Signs: 08/27 16:34 Resp 20; Temp 99.2(O); Weight 49.44 kg / 109 lbs (R); Height 4 ft. 11 in. (149.86 cm) jjr (R); Pain 7/10; 16:56 BP 160 / 62 RA Sitting (man/reg); Pulse 69; Pulse Ox 99% on R/A; jjr 18:15 BP 161 / 71 (auto/); jjr 18:16 Pulse 64 MON; Resp 18; Pulse Ox 99% on R/A; jjr 19:47 BP 199 / 94 (auto/); cf2 19:49 Pulse 86 MON; Pulse Ox 93% ; cf2 20:02 BP 188 / 88 (auto/); cf2 20:02 Pulse 80 MON; Pulse Ox 92% ; cf2 16:34 Body Mass Index 22.02 (49.44 kg, 149.86 cm) jjr MDM: 16:28 IV Saline Lock ordered. br1 16:28 Undress patient ordered. br1 16:28 morphine 2 mg IVP once; prn pain ordered. br1 16:29 CBC with Diff Ordered. EDMS 16:29 BMP Ordered. EDMS 16:51 Vital Signs ordered. br1 16:55 Hip,(1 View) Ordered. EDMS 16:55 Femur Ordered. EDMS 17:30 BED REQUEST+ADM ordered. EDMS 17:40 Chest, 1 View Ordered. EDMS 17:40 ECG WITH READING ER PHYS+CARDIAG ordered. EDMS 17:45 NS 0.9% 1000 ml IV at 100 mL/hr continuous ordered. br1 17:45 Boom Cat Operator/Pulse Ox/q 30 min VS ordered. br1 17:47 Hip, Ap,Lat Ordered. EDMS 18:13 NPO DIET ordered. EDMS 18:14 SODIUM,RANDOM URINE Ordered. EDMS 18:14 CREATININE,RANDOM URINE Ordered. EDMS 18:14 OSMOLALITY,URINE Ordered. EDMS 18:16 Admission / Observation Status ordered. EDMS 18:20 Financial registration complete. gjb 19:06 [facility] Payment Agreement was scanned into [employer] and attached to record. gjb 19:18 morphine 4 mg IVP once ordered. br1 19:33 CBC WITH DIFFERENTIAL Ordered. EDMS 19:33 COMPLETE COMPHRENSIVE METABOLI Ordered. EDMS 19:33 MAGNESIUM LEVEL Ordered. EDMS 02/03 10:05 T-Sheet-- Draft Copy was scanned into [employer] and attached to record. gb 10:06 Other: PROGRESS NOTE was scanned into [employer] and attached to record. gb 10:07 PCR was scanned into [employer] and attached to record. gb Administered Medications: 08/27 17:06 Drug: morphine 2 mg [morphine 2 mg/mL intravenous cartridge (1 mL)] Route: IVP; Site: jjr left antecubital; 18:22 Drug: NS 0.9% 1000 ml [sodium chloride 0.9 % intravenous solution] Route: IV; Rate: 100 ld5 mL/hr; Site: left antecubital; 19:28 Drug: morphine 4 mg [morphine 4 mg/mL intravenous cartridge (1 mL)] Route: IVP; Site: cf2 left antecubital; Signatures: Dispatcher [employer] EDMS Rachel Leavitt, Reg Reg gb Timothy Ghosh MD MD br1 Greta Appiah RN RN Abril Leos RN RN sls1 Elham Bustamante b Amy Eason RN RN cf2 Yogi Almanza RN RN sa Dickerson, Laura RN ld5 The chart was reviewed and I authenticate all verbal orders and agree with the evaluation and treatment provided.Attachments: 19:06 [facility] Payment Agreement gjb 08/28 10:05 T-Sheet-- Draft Copy Chart Complete MTDD
--- NOTE | 2016-08-29 21:27 | EDDOCDS ---
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 2.5 mg IV morphine at 1535 and 1542, 10# traction to right leg. Adult Sepsis Screening: The patient does not have new or worsening altered mentation. Patient's respiratory rate is less than 22. Systolic blood pressure is greater than 100. Patient has a qSOFA score of 0- Negative Sepsis Screen. Suicide/Homicide risk assessment- the patient denies having any suicidal and/or homicidal ideations and does not present with any other emotional, behavioral or mental health complaints. Status: Patient is not a services advisor or dependent. Transition of care: patient was not received from another setting of care. 16:30 Acuity: AMANDA Level 3 jjr 16:30 Method Of Arrival: Ambulance jjr Triage Assessment: 16:42 General: Appears in no apparent distress, slender, well nourished, well groomed, jjr Behavior is anxious, appropriate for age. Pain: Location: lateral aspect of right thigh. Musculoskeletal: Range of motion limited in right hip. Historical: - Allergies: codeine (Vomit); - Home Meds: 1. mometasone 50 mcg/actuation nasal spry 2 sprays once daily 2. meloxicam 15 mg oral tab 1 tab once daily 3. aspirin 81 mg Oral tab 1 tab once daily 4. atorvastatin 40 mg oral tab 1 tab once daily 5. Vitamin D Oral 2000 units daily 6. Calcium + Vitamin D 500 mg oral tab 7. vitamin R39-zjqlr acid 1000 mcg oral tab once daily 8. Atrovent 0.06 % Nasal spry q6h prn 9. Systane 0.4-0.3 % ophthalmic drop daily 10. ICaps AREDS 7,160-113-100 zidr-gg-odtg oral TbEC daily 11. bisoprolol fumarate 5 mg oral tab 1 tab once daily (Last dose: 08/27/2016 08:00) 12. lisinopril 20 mg Oral tab 1 tab once daily - PMHx: Hypertension; TIA; Hypercholesterolemia; Osteoporosis; allergic rhinitis; thrombocytopenia; hematochezia; Macular Degeneration; left sided sciatica; - PSHx: Hysterectomy; Cataract Surgery- Bilateral; - Social history: Smoking status: Patient states was never smoker of tobacco. No barriers to communication noted, The patient speaks fluent Nepali. - Family history: Not pertinent. - : The pt / caregiver states he / she is not on anticoagulants. Home medication list is obtained from the patient. - Exposure Risk Screening:: None identified. Screenin:29 Fall Risk. jjr 18:24 Screening information is obtained from the patient. Fall risk: At risk due to injury, jjr The following interventions are performed due to a positive Fall Risk Screen: added to special handling. Abuse/DV Screen: The patient / caregiver reports he/she is: not in a situation that causes fear, pain or injury. Nutritional screening: No deficits noted. home support is adequate. 18:34 Assistance ADL's: requires no assistance with activities of daily living. Advance jjr Directives: Currently, there is a health care proxy, Yogi Martinez. There is no active DNR order. Assessment: 17:38 General: Appears in no apparent distress, slender, well nourished, well groomed, jjr Behavior is appropriate for age. Neurological: No deficits noted. Respiratory: Airway is patent Respiratory effort is even, unlabored, Respiratory pattern is regular. Derm: No deficits noted. Musculoskeletal: Range of motion limited in right hip Reports pain in lateral aspect of right thigh. 18:32 General: Appears in no apparent distress, Behavior is appropriate for age. jjr Neurological: No deficits noted. Cardiovascular: Rhythm is sinus rhythm. Respiratory: No deficits noted. Derm: No deficits noted. 20:11 Reassessment: Patient states symptoms have improved. Adult Sepsis Screening: The cf2 patient does not have new or worsening altered mentation. Patient's respiratory rate is less than 22. Systolic blood pressure is greater than 100. Patient has a qSOFA score of 0- Negative Sepsis Screen. Pain: Location: buttocks. EENT: No deficits noted. GI: No deficits noted. : No deficits noted. Vital Signs: 16:34 Resp 20; Temp 99.2(O); Weight 49.44 kg (R); Height 4 ft. 11 in. (149.86 cm) (R); Pain jjr 7/10; 16:56 BP 160 / 62 RA Sitting (man/reg); Pulse 69; Pulse Ox 99% on R/A; jjr 18:15 BP 161 / 71 (auto/); jjr 18:16 Pulse 64 MON; Resp 18; Pulse Ox 99% on R/A; jjr 19:47 BP 199 / 94 (auto/); cf2 19:49 Pulse 86 MON; Pulse Ox 93% ; cf2 20:02 BP 188 / 88 (auto/); cf2 20:02 Pulse 80 MON; Pulse Ox 92% ; cf2 16:34 Body Mass Index 22.02 (49.44 kg, 149.86 cm) jr Vitals: 16:34 Log In Time N/A - ambulance arrival. r ED Course: 16:26 Patient visited by Deborah Beasley PCA. rs6 16:26 Marcus Parra is Private Physician. rs6 16:26 Patient moved to Waiting rs6 16:26 Patient moved to 13 rs6 16:27 Timothy Ghosh MD is Attending Physician. br1 16:31 Patient visited by Timothy Ghosh MD. br1 16:32 Triage Initiated jjr 17:01 BMP Sent. jjr 17:01 CBC with Diff Sent. jjr 17:39 Patient visited by Greta Appiah, PERRY. jjr 17:57 Errol Eli is Hospitalizing Provider. br1 18:18 Patient visited by Paco Hobson PCA. jrd 18:18 EKG done. Reviewed by Errol Eli. jrd 18:22 youth nutritional monitor on. Pulse ox on. NIBP on. ld5 18:23 Hip,(1 View) Returned. EDMS 18:33 Patient visited by Greta Appiah, PERRY. jjr 19:03 Amy Eason,RN is Primary Nurse. cf2 19:03 Patient visited by Amy Eason,PERRY. cf2 19:06 [facility] Payment Agreement was scanned into [employer] and attached to record. gjb 19:18 Femur Returned. EDMS 19:18 Chest, 1 View Returned. EDMS 19:49 The patient / caregiver is instructed regarding the plan of care and ED course. Patient cf2 has correct armband on for positive identification. Placed in gown. Bed in low position. Call light in reach. Side rails up X 1. Side rails up X2. Property :Personal belongings accompany Pt. Door closed. Noise minimized. Visitors limited. Lights dimmed. Moved to private room. Verbal reassurance given. Warm blanket given. Pillow given. Head of bed elevated. Diet: Patient is NPO. 20:12 Inserted saline lock: 18 gauge in left antecubital area and blood collected. The cf2 patient tolerated the procedure well. No procedures done that require assistance. 08/28 10:05 T-Sheet-- Draft Copy was scanned into [employer] and attached to record. gb 10:06 Other: PROGRESS NOTE was scanned into [employer] and attached to record. gb 10:07 PCR was scanned into [employer] and attached to record. gb Administered Medications: 08/27 17:06 Drug: morphine 2 mg [morphine 2 mg/mL intravenous cartridge (1 mL)] Route: IVP; Site: jjr left antecubital; 18:22 Drug: NS 0.9% 1000 ml [sodium chloride 0.9 % intravenous solution] Route: IV; Rate: 100 ld5 mL/hr; Site: left antecubital; 19:28 Drug: morphine 4 mg [morphine 4 mg/mL intravenous cartridge (1 mL)] Route: IVP; Site: cf2 left antecubital; Order Results: Lab Order: CBC with Diff; SPEC'M 08/27/16 17:00 Test: WHITE BLOOD COUNT; Value: 8.4; Range: 4.0-10.0; Units: K/mm3; Status: F Test: RED BLOOD COUNT; Value: 3.84; Range: 4.00-5.40; Abnormal: Below low normal; Units: M/mm3; Status: F Test: HEMOGLOBIN; Value: 12.4; Range: 12.0-16.0; Units: g/dl; Status: F Test: HEMATOCRIT; Value: 36.5; Range: 36.0-47.0; Units: %; Status: F Test: MEAN CORPUSCULAR VOLUME; Value: 95.0; Range: 80.0-96.0; Units: fl; Status: F Test: MEAN CORPUSCULAR HEMOGLOBIN; Value: 32.4; Range: 27.0-33.0; Units: pg; Status: F Test: MEAN CORPUSCULAR HGB CONC; Value: 34.1; Range: 32.0-36.5; Units: g/dl; Status: F Test: RED CELL DISTRIBUTION WIDTH; Value: 12.2; Range: 11.5-14.5; Units: %; Status: F Test: PLATELET COUNT, AUTOMATED; Value: 92; Range: 150-450; Abnormal: Below low normal; Units: k/mm3; Status: F Test: NEUTROPHILS %; Value: 80.7; Range: 36.0-66.0; Abnormal: Above high normal; Units: %; Status: F Test: LYMPH %; Value: 10.7; Range: 24.0-44.0; Abnormal: Below low normal; Units: %; Status: F Test: MONO %; Value: 6.5; Range: 0.0-5.0; Abnormal: Above high normal; Units: %; Status: F Test: EOS %; Value: 0.4; Range: 0.0-3.0; Units: %; Status: F Test: BASO %; Value: 0.1; Range: 0.0-1.0; Units: %; Status: F Test: LARGE UNSTAINED CELL %; Value: 1.6; Range: 0.0-4.0; Units: %; Status: F Test: NEUTROPHILS #; Value: 6.8; Range: 1.8-7.7; Units: K/mm3; Status: F Test: LYMPH #; Value: 0.9; Range: 1.5-4.5; Abnormal: Below low normal; Units: K/mm3; Status: F Test: MONO #; Value: 0.5; Range: 0.0-0.8; Units: K/mm3; Status: F Test: EOS #; Value: 0.0; Range: 0.0-0.50; Units: K/mm3; Status: F Test: BASO #; Value: 0.0; Range: 0.0-0.2; Units: K/mm3; Status: F Test: LARGE UNSTAINED CELL #; Value: 0.1; Range: 0.0-0.4; Units: K/mm3; Status: F Lab Order: CHRISTELLE EDWARDS'M 08/27/16 17:00 Test: GLUCOSE, FASTING; Value: 117; Range: 83-110; Abnormal: Above high normal; Units: MG/DL; Status: F Test: BLOOD UREA NITROGEN; Value: 30; Range: 7-18; Abnormal: Above high normal; Units: MG/DL; Status: F Test: CREATININE FOR GFR; Value: 1.48; Range: 0.55-1.02; Abnormal: Above high normal; Units: MG/DL; Status: F Test: GLOMERULAR FILTRATION RATE; Value: 35.6; Range: >32; Status: F Test: SODIUM LEVEL; Value: 145; Range: 136-145; Units: MEQ/L; Status: F Test: POTASSIUM SERUM; Value: 4.2; Range: 3.5-5.1; Units: MEQ/L; Status: F Test: CHLORIDE LEVEL; Value: 111; Range: 98-107; Abnormal: Above high normal; Units: MEQ/L; Status: F Test: CARBON DIOXIDE LEVEL; Value: 28; Range: 21-32; Units: MEQ/L; Status: F Test: ANION GAP; Value: 6; Range: 8-16; Abnormal: Below low normal; Units: MEQ/L; Status: F Test: CALCIUM LEVEL; Value: 8.5; Range: 8.8-10.2; Abnormal: Below low normal; Units: MG/DL; Status: F Test Note: ; Units are mL/min/1.73 m2 Chronic Kidney Disease Staging per NKF: Stage I & II GFR >=60 Normal to Mildly Decreased Stage III GFR 30-59 Moderately Decreased Stage IV GFR 15-29 Severely Decreased Stage V GFR <15 Very Little GFR Left ESRD GFR <15 on SENIOR PROGRAMMER Radiology Order: Hip,(1 View) Test: Hip,(1 View) REASON FOR EXAMINATION: Trauma; RIGHT HIP ONE-VIEW: 08/27/2016:; ; Comparison: 02/09/2010.; ; Single view shows intertrochanteric comminuted fracture. There is overlap of the; distal major fragment with the femoral neck and displacement of the distal major; fragment medially by a full shaft width as well as the avulsion and displacement; of the lesser trochanter and rotation. Femoral head shows some mild flattening; with degenerative changes including marked narrowing of the joint space larger; rim osteophyte acetabulum and rim osteophytes femoral head. Vascular; calcifications of the femoral artery noted. Pubic rami and acetabula without; gross fracture. The right iliac bone and SI joint as well as the right aspect of; the sacral ala intact.; ; Impression:; ; 1. Comminuted intertrochanteric fracture of the right hip with overlap of the; distal major fragment of the subtrochanteric hip onto the inferior aspect of the; femoral neck and avulsion with distraction and rotation of the lesser trochanter.; Slight varus of the hip and advanced degenerative changes. No fracture of the; femoral head or acetabulum.; ; ; Signed by; Andrew Oakley MD 08/27/2016 07:55 P; Radiology Order: Femur Test: Femur REASON FOR EXAMINATION: Trauma; RIGHT FEMUR SERIES, COMPLETE: 08/27/2016.; ; Comparison: Single view right hip this date.; ; Four views are provided including AP and lateral views of the mid to distal femur; and two cross-table lateral views of the proximal femur and hip. There is a; known comminuted intertrochanteric/subtrochanteric fracture of the hip with; angulation and displacement. There is no subluxation or dislocation of the; femoral head from the acetabulum. Remainder of the shaft of the femur is without; a fracture. Bones are demineralized.; ; ; Signed by; Andrew Oakley MD 08/27/2016 07:55 P; Radiology Order: Chest, 1 View Test: Chest, 1 View REASON FOR EXAMINATION: pre-op; AP portable seated chest: 08/27/2016; ; Clinical history: Trauma.; ; No prior pertinent study.; ; Lungs are marginally adequate in the degree of inflation. There is no pleural; effusion or acute infiltrate. Some minor basilar fibrotic changes are noted. No; cardiomegaly, vascular redistribution or pulmonary edema. The aorta is calcified; at the arch, mildly tortuous without aneurysm. Airway is intact. Skin fold; projects over the left midchest. There is a linear artifact. Bones are; demineralized with degenerative changes of the spine, shoulders and AC joints.; No free air.; ; Impression:; ; 1. Bibasilar fibrotic change with borderline level of inflation, but no gross; cardiomegaly, edema, effusion or dense consolidation.; ; 2. Calcified aorta with some tortuosity but no aneurysm.; ; 3. Bones demineralized.; ; ; Signed by; Andrew Oakley MD 08/27/2016 07:56 P; Outcome: 17:57 Decision to Hospitalize by Provider. br1 20:14 Discharge Assessment: Patient awake, alert and oriented x 3. No cognitive and/or cf2 functional deficits noted. Patient verbalized understanding of disposition instructions. Patient awake and alert. patient administered narcotics - yes. Patient was admitted to the hospital or transferred to another facility. The following High Risk Discharge criteria are identified: None. Admitted to OR. Condition: good. No special radiology studies were completed. Property :Personal belongings accompany Pt. 20:26 Patient left the ED. sls1 Signatures: Dispatcher [employer] EDMS Rachel Leavitt, Donnie Reg Timothy De Guzman MD MD br1 Greta Appiah, RN RN Julisa GilmoreRN RN ld5 Abril Noyola, RN RN sls1 Paco Hobson, PSS DELIVERY PROFESSIONAL PSS DELIVERY PROFESSIONAL jrd Deborah Beasley, PSS DELIVERY PROFESSIONAL PSS DELIVERY PROFESSIONAL rs6 Elham Bustamante Christina,RN RN cf2 Corrections: (The following items were deleted from the chart) 18:18 18:17 EKG done. (by ED staff). Reviewed by Timothy riuz jrd Chart Complete MTDD
--- NOTE | 2016-08-29 21:27 | EDDOCDS ---
Physician Documentation [facility] Name: Aruna Martinez Age: 85 yrs Sex: Female : 1930 Arrival Date: 08/27/2016 Time: 16:25 Bed 13 Private MD: Marcus Parra Disposition: 08/27/16 17:57 Hospitalization ordered by Errol Eli for Inpatient Admission. Preliminary diagnosis is Displaced intertrochanteric fracture of right femur. - Bed requested for 5 [place]. - Status is Inpatient Admission. sls1 - Condition is Stable. - Problem is new. - Symptoms are unchanged. Historical: - Allergies: codeine (Vomit); - Home Meds: 1. mometasone 50 mcg/actuation nasal spry 2 sprays once daily 2. meloxicam 15 mg oral tab 1 tab once daily 3. aspirin 81 mg Oral tab 1 tab once daily 4. atorvastatin 40 mg oral tab 1 tab once daily 5. Vitamin D Oral 2000 units daily 6. Calcium + Vitamin D 500 mg oral tab 7. vitamin [id number] acid 1000 mcg oral tab once daily 8. Atrovent 0.06 % Nasal spry q6h prn 9. Systane 0.4-0.3 % ophthalmic drop daily 10. ICaps AREDS 7,160-113-100 [id number] oral TbEC daily 11. bisoprolol fumarate 5 mg oral tab 1 tab once daily (Last dose: 08/27/2016 08:00) 12. lisinopril 20 mg Oral tab 1 tab once daily - PMHx: Hypertension; TIA; Hypercholesterolemia; Osteoporosis; allergic rhinitis; thrombocytopenia; hematochezia; Macular Degeneration; left sided sciatica; - PSHx: Hysterectomy; Cataract Surgery- Bilateral; - Social history: Smoking status: Patient states was never smoker of tobacco. No barriers to communication noted, The patient speaks fluent Sinhala. - Family history: Not pertinent. - : The pt / caregiver states he / she is not on anticoagulants. Home medication list is obtained from the patient. - Exposure Risk Screening:: None identified. Vital Signs: 08/27 16:34 Resp 20; Temp 99.2(O); Weight 49.44 kg / 109 lbs (R); Height 4 ft. 11 in. (149.86 cm) jjr (R); Pain 7/10; 16:56 BP 160 / 62 RA Sitting (man/reg); Pulse 69; Pulse Ox 99% on R/A; jjr 18:15 BP 161 / 71 (auto/); jjr 18:16 Pulse 64 MON; Resp 18; Pulse Ox 99% on R/A; jjr 19:47 BP 199 / 94 (auto/); cf2 19:49 Pulse 86 MON; Pulse Ox 93% ; cf2 20:02 BP 188 / 88 (auto/); cf2 20:02 Pulse 80 MON; Pulse Ox 92% ; cf2 16:34 Body Mass Index 22.02 (49.44 kg, 149.86 cm) jjr MDM: 16:28 IV Saline Lock ordered. br1 16:28 Undress patient ordered. br1 16:28 morphine 2 mg IVP once; prn pain ordered. br1 16:29 CBC with Diff Ordered. EDMS 16:29 BMP Ordered. EDMS 16:51 Vital Signs ordered. br1 16:55 Hip,(1 View) Ordered. EDMS 16:55 Femur Ordered. EDMS 17:30 BED REQUEST+ADM ordered. EDMS 17:40 Chest, 1 View Ordered. EDMS 17:40 ECG WITH READING ER PHYS+CARDIAG ordered. EDMS 17:45 NS 0.9% 1000 ml IV at 100 mL/hr continuous ordered. br1 17:45 Human Service Specialist/Pulse Ox/q 30 min VS ordered. br1 17:47 Hip, Ap,Lat Ordered. EDMS 18:13 NPO DIET ordered. EDMS 18:14 SODIUM,RANDOM URINE Ordered. EDMS 18:14 CREATININE,RANDOM URINE Ordered. EDMS 18:14 OSMOLALITY,URINE Ordered. EDMS 18:16 Admission / Observation Status ordered. EDMS 18:20 Financial registration complete. gjb 19:06 [facility] Payment Agreement was scanned into [employer] and attached to record. gjb 19:18 morphine 4 mg IVP once ordered. br1 19:33 CBC WITH DIFFERENTIAL Ordered. EDMS 19:33 COMPLETE COMPHRENSIVE METABOLI Ordered. EDMS 19:33 MAGNESIUM LEVEL Ordered. EDMS 02/03 10:05 T-Sheet-- Draft Copy was scanned into [employer] and attached to record. gb 10:06 Other: PROGRESS NOTE was scanned into [employer] and attached to record. gb 10:07 PCR was scanned into [employer] and attached to record. gb Administered Medications: 08/27 17:06 Drug: morphine 2 mg [morphine 2 mg/mL intravenous cartridge (1 mL)] Route: IVP; Site: jjr left antecubital; 18:22 Drug: NS 0.9% 1000 ml [sodium chloride 0.9 % intravenous solution] Route: IV; Rate: 100 ld5 mL/hr; Site: left antecubital; 19:28 Drug: morphine 4 mg [morphine 4 mg/mL intravenous cartridge (1 mL)] Route: IVP; Site: cf2 left antecubital; Signatures: Dispatcher [employer] EDMS Rachel Leavitt, Reg Reg gb Timothy Ghosh MD MD br1 Greta Appiah RN RN Abril Leos RN RN sls1 Elham Bustamante b Amy Eason RN RN cf2 Yogi Almanza RN RN sa Dickerson, Laura RN ld5 The chart was reviewed and I authenticate all verbal orders and agree with the evaluation and treatment provided.Attachments: 19:06 [facility] Payment Agreement gjb 08/28 10:05 T-Sheet-- Draft Copy Chart Complete MTDD
[2016-08-30] MEDS: ACETAMINOPHEN TAB 650MG DOSE (2X325MG) PO PRN ×3 (02:11→15:36)
[2016-08-30] MEDS: CEPACOL LOZENGE PO PRN (02:15)
[2016-08-30 06:00] VITALS: BP 128/57
[2016-08-30 06:43] LABS: BASO % 0.1 % (0.0-1.0); EOS # 0.2 K/mm3 (0.0-0.50); EOS % 1.7 % (0.0-3.0); LARGE UNSTAINED CELL # 0.2 K/mm3 (0.0-0.4); LARGE UNSTAINED CELL % 1.6 % (0.0-4.0); LYMPH # 1.4 K/mm3 (1.5-4.5); LYMPH % 13.3 % (24.0-44.0); MEAN CORPUSCULAR HEMOGLOBIN 31.4 pg (27.0-33.0); MEAN CORPUSCULAR HGB CONC 34.6 g/dl (32.0-36.5); MONO # 0.7 K/mm3 (0.0-0.8); MONO % 7.4 % (0.0-5.0); NEUTROPHILS # 6.9 K/mm3 (1.8-7.7); NEUTROPHILS % 75.8 % (36.0-66.0); RED CELL DISTRIBUTION WIDTH 15.4 % (11.5-14.5); WHITE BLOOD COUNT 9.2 K/mm3 (4.0-10.0)
[2016-08-30 06:45] LABS: MEAN CORPUSCULAR VOLUME 90.8 fl (80.0-96.0)
[2016-08-30 06:46] LABS: PLATELET COUNT, AUTOMATED 74 k/mm3 (150-450)
[2016-08-30 06:53] LABS: INR 3.59
[2016-08-30 06:59] LABS: ALBUMIN 2.4 GM/DL (3.2-5.2); ALBUMIN/GLOBULIN RATIO 1.04 (1.00-1.93); BILIRUBIN,TOTAL 0.7 MG/DL (0.2-1.0); CALCIUM LEVEL 7.7 MG/DL (8.8-10.2); CREATININE FOR GFR 1.48 MG/DL (0.55-1.02); GLOMERULAR FILTRATION RATE 35.6 (>32); MAGNESIUM LEVEL 2.3 MG/DL (1.8-2.4); POTASSIUM SERUM 4.5 MEQ/L (3.5-5.1); TOTAL PROTEIN 4.7 GM/DL (6.4-8.2)
[2016-08-30] MEDS ORDERED: PHYTONADIONE 1.25 MG 1/4 TAB PO ONE (07:15)
[2016-08-30] MEDS: SENOKOT S TAB PO SCH ×2 (08:47→20:29)
[2016-08-30] MEDS: ONDANSETRON 4 MG TAB (S0181) PO PRN ×2 (08:47→15:37)
[2016-08-30] MEDS: traMADol 50 MG TAB PO PRN ×2 (08:48→15:36)
[2016-08-30] MEDS: OCUVITE 1 TAB PO SCH (08:48)
[2016-08-30] MEDS: MIRALAX *UNIT DOSE* 17GM PACKET PO SCH (08:49)
[2016-08-30] MEDS: BISOPROLOL FUMARATE 5 MG TAB PO SCH (08:49)
[2016-08-30] MEDS: POLYVINYL ALCOHOL OPHTH SOLN 15 ML(LIQUITEARS) OU SCH (08:51)
[2016-08-30] MEDS: FLUTICASONE PROP 0.05% NASAL SPRAY 16 GM (FLONASE) SCH (08:51)
--- NOTE | 2016-08-30 09:30 | IPNPDOC ---
Date Seen The patient was seen on 08/30/16. Progress Note Hospitalist Progress Note Subjective: The patient is complaining of a sore throat that is making it difficult for her to eat Objective: Physical Exam: Vitals: Vital Sign - Last 24 Hours 08/29/16 08/29/16 08/29/16 08/29/16 10:00 11:38 13:31 14:00 Temp 97.0 97.5 97.1 Pulse 71 71 79 Resp 18 20 20 20 B/P 107/55 92/42 99/71 Pulse Ox 98 96 99 O2 Delivery Room Air Room Air Room Air 08/29/16 08/29/16 08/29/16 08/30/16 14:02 18:02 22:00 06:00 Temp 98.3 98.6 98.1 Pulse 80 82 76 Resp 18 20 20 18 B/P 122/76 128/72 128/57 Pulse Ox 96 96 90 O2 Delivery Room Air Room Air 08/30/16 08/30/16 08:48 08:49 Pulse 76 Resp 20 B/P 128/57 O2 Delivery Room Air General: Awake, alert, no acute distress HEENT: Normocephalic, atraumatic, extraocular movements intact CV: Regular rate and rhythm, no murmurs rubs or gallops Lungs: Clear to auscultation bilaterally Abd: Soft, Nontender, nondistended Extremities: No edema Neuro: Alert and oriented 3, normal speech Psych: Normal mood and affect Labs and Imaging: Laboratory Tests 08/30/16 06:27 Calcium Level 7.7 L, Aspartate Amino Transf (AST/SGOT) 40 H, Alanine Aminotransferase (ALT/SGPT) 17, Alkaline Phosphatase 46, Total Bilirubin 0.7 #, Total Protein 4.7 L, Albumin 2.4 L, Red Blood Count 3.18 L, Mean Corpuscular Volume 90.8 #, Mean Corpuscular Hemoglobin 31.4, Mean Corpuscular Hemoglobin Concent 34.6, Red Cell Distribution Width 15.4 H, Neutrophils (%) (Auto) 75.8 H , Lymphocytes (%) (Auto) 13.3 L, Monocytes (%) (Auto) 7.4 H, Eosinophils (%) ( Auto) 1.7, Basophils (%) (Auto) 0.1, Neutrophils # (Auto) 6.9, Lymphocytes # ( Auto) 1.4 L, Monocytes # (Auto) 0.7, Eosinophils # (Auto) 0.2, Basophils # (Auto ) 0.0 Assessment and Plan: 85-year-old female with hypertension, hyperlipidemia, chronic kidney disease stage III, history of TIA, chronic thrombocytopenia, macular degeneration who presented after suffering a mechanical fall that resulted in a right hip fracture. The patient is now status post operative repair but is currently having issues with acute blood loss anemia. 1. Right hip fracture: Management as per orthopedics 2. Acute blood loss anemia: The patient's hemoglobin has steadily trended down since admission, and on August 29, she required 2 unit PRBC transfusion when her hemoglobin was 6.8. She has responded well, with a hemoglobin this morning at 10.0. The patient has no gross bleeding, and at this time, I suspect that this is secondary to blood loss during surgery, exacerbated by a supratherapeutic INR. At this time, orthopedics has held her Coumadin, and has given her dose of vitamin K this morning. We'll continue to monitor her INR and hemoglobin. 3. Acute on chronic kidney disease: The patient's baseline creatinine appears to be around the low ones. Her creatinine did bump yesterday with her drop in hemoglobin, but it has now improved to 1.48 this morning after blood transfusion. We'll continue to monitor. 4. Chronic thrombocytopenia: The patient's baseline platelets appears to be in the low 100s range. Her platelets are currently 74. Given her supratherapeutic INR, orthopedics has held her Coumadin and administer a small dose of vitamin K. We will also hold her aspirin at this time. 5. Hypertension: Currently stable. Continue home beta refugio. Holding ADARSH inhibitor given acute on chronic kidney disease 6. Hyperlipidemia: Continue home statin. 7. History of TIA: Continue blood pressure control. Continue home statin. Currently holding home aspirin given thrombocytopenia and elevated INR. 8. Macular degeneration: Continue home eyedrops. 9. Sore throat: This appears to be secondary to the recent intubation for the surgery. Continue lozenges. DVT prophylaxis: As per orthopedics Dispo: monitor hemoglobin and INR in setting of acute blood loss anemia, thrombocytopenia and supratherapeutic INR VS, I&O, 24H, Fishbone VS, I&O, 24H, Fishbone Vital Signs Date Time Temp Pulse Resp B/P Pulse Ox O2 Delivery O2 Flow Rate FiO2 08/30/16 08:49 76 128/57 08/30/16 08:48 20 Room Air 08/30/16 06:00 98.1 90 08/28/16 17:32 0.0 I&O- Last 24 Hours up to 6 AM 08/30/16 06:00 Intake Total 1021 ml Output Total 750 ml Balance 271 ml Laboratory Tests 2 08/30/16 02:09: Urine Random Creatinine 101.0, Urine Random Osmolality 622, Urine Random Sodium 54 08/30/16 06:27: Blood Urea Nitrogen 49H, Creatinine 1.48H, Sodium Level 146H, Potassium Level 4.5, Chloride Level 114H, Carbon Dioxide Level 24, Calcium Level 7.7L, Aspartate Amino Transf (AST/SGOT) 40H, Alanine Aminotransferase (ALT/SGPT) 17, Alkaline Phosphatase 46, Total Bilirubin 0.7#, Total Protein 4.7L, Albumin 2.4L , Albumin/Globulin Ratio 1.04, Anion Gap 8, White Blood Count 9.2, Red Blood Count 3.18L, Hemoglobin 10.0#L, Hematocrit 28.9L, Mean Corpuscular Volume 90.8# , Mean Corpuscular Hemoglobin 31.4, Mean Corpuscular Hemoglobin Concent 34.6, Red Cell Distribution Width 15.4H, Platelet Count 74L, Neutrophils (%) (Auto) 75.8H, Lymphocytes (%) (Auto) 13.3L, Monocytes (%) (Auto) 7.4H, Eosinophils (%) (Auto) 1.7, Basophils (%) (Auto) 0.1, Neutrophils # (Auto) 6.9, Lymphocytes # ( Auto) 1.4L, Monocytes # (Auto) 0.7, Eosinophils # (Auto) 0.2, Basophils # (Auto ) 0.0, Glomerular Filtration Rate 35.6, Large Unclassified Cells # 0.2, Large Unclassified Cells % 1.6, Magnesium Level 2.3, Prothromb Time International Ratio 3.59, Prothrombin Time 35.8H Laboratory Tests 08/30/16 06:27 Calcium Level 7.7 L, Aspartate Amino Transf (AST/SGOT) 40 H, Alanine Aminotransferase (ALT/SGPT) 17, Alkaline Phosphatase 46, Total Bilirubin 0.7 #, Total Protein 4.7 L, Albumin 2.4 L, Red Blood Count 3.18 L, Mean Corpuscular Volume 90.8 #, Mean Corpuscular Hemoglobin 31.4, Mean Corpuscular Hemoglobin Concent 34.6, Red Cell Distribution Width 15.4 H, Neutrophils (%) (Auto) 75.8 H , Lymphocytes (%) (Auto) 13.3 L, Monocytes (%) (Auto) 7.4 H, Eosinophils (%) ( Auto) 1.7, Basophils (%) (Auto) 0.1, Neutrophils # (Auto) 6.9, Lymphocytes # ( Auto) 1.4 L, Monocytes # (Auto) 0.7, Eosinophils # (Auto) 0.2, Basophils # (Auto ) 0.0 PANTERA HIGH Aug 30, 2016 09:30
[2016-08-30] MEDS: VITAMIN D 1,000 INTERNATIONAL UNITS TABLET PO SCH (12:31)
[2016-08-30 14:00] VITALS: BP 122/56
[2016-08-30] MEDS: ATORVASTATIN 20 MG TAB PO SCH (20:29)
[2016-08-30 22:00] VITALS: BP 144/65
[2016-08-31 06:00] VITALS: BP 148/66
[2016-08-31] MEDS: traMADol 50 MG TAB PO PRN (06:19)
[2016-08-31] MEDS ORDERED: TRAM50TA2 PO ×2 (06:40→06:46)
[2016-08-31] MEDS ORDERED: AKWASOL OU (06:40)
[2016-08-31] MEDS ORDERED: MAPA325T2 PO (06:40)
[2016-08-31] MEDS ORDERED: FLUTISP (06:46)
[2016-08-31] MEDS ORDERED: SENN1TAB2 PO (06:46)
[2016-08-31] MEDS ORDERED: OCUVTA PO (06:46)
[2016-08-31] MEDS ORDERED: CEPA1LOZ2 PO (06:46)
[2016-08-31] MEDS ORDERED: PEG1POW PO (06:46)
[2016-08-31] MEDS ORDERED: ONDA1TAB15 PO (06:46)
[2016-08-31] MEDS ORDERED: VITAD1000T PO (06:46)
[2016-08-31 06:58] LABS: INR 1.66
[2016-08-31 07:01] LABS: BASO % 0.2 % (0.0-1.0); EOS # 0.2 K/mm3 (0.0-0.50); EOS % 2.2 % (0.0-3.0); LARGE UNSTAINED CELL # 0.1 K/mm3 (0.0-0.4); LARGE UNSTAINED CELL % 1.4 % (0.0-4.0); LYMPH # 1.7 K/mm3 (1.5-4.5); LYMPH % 19.9 % (24.0-44.0); MEAN CORPUSCULAR HEMOGLOBIN 30.7 pg (27.0-33.0); MEAN CORPUSCULAR HGB CONC 33.4 g/dl (32.0-36.5); MEAN CORPUSCULAR VOLUME 91.7 fl (80.0-96.0); MONO # 0.7 K/mm3 (0.0-0.8); MONO % 8.3 % (0.0-5.0); NEUTROPHILS # 5.4 K/mm3 (1.8-7.7); NEUTROPHILS % 67.9 % (36.0-66.0); RED CELL DISTRIBUTION WIDTH 15.1 % (11.5-14.5); WHITE BLOOD COUNT 7.9 K/mm3 (4.0-10.0)
[2016-08-31 07:07] LABS: PLATELET COUNT, AUTOMATED 88 k/mm3 (150-450)
[2016-08-31 07:13] LABS: ALBUMIN 2.5 GM/DL (3.2-5.2); ALBUMIN/GLOBULIN RATIO 0.93 (1.00-1.93); BILIRUBIN,TOTAL 0.9 MG/DL (0.2-1.0); CREATININE FOR GFR 1.1 MG/DL (0.55-1.02); GLOMERULAR FILTRATION RATE 50.1 (>32); MAGNESIUM LEVEL 2.3 MG/DL (1.8-2.4); POTASSIUM SERUM 4.6 MEQ/L (3.5-5.1); TOTAL PROTEIN 5.2 GM/DL (6.4-8.2)
[2016-08-31] MEDS: OCUVITE 1 TAB PO SCH (09:07)
[2016-08-31] MEDS: FLUTICASONE PROP 0.05% NASAL SPRAY 16 GM (FLONASE) SCH (09:08)
[2016-08-31] MEDS: ASPIRIN 81 MG ENTERIC TAB PO SCH (09:08)
[2016-08-31] MEDS: BISOPROLOL FUMARATE 5 MG TAB PO SCH (09:08)
[2016-08-31] MEDS: MIRALAX *UNIT DOSE* 17GM PACKET PO SCH (09:08)
[2016-08-31] MEDS: SENOKOT S TAB PO SCH ×2 (09:08→21:23)
[2016-08-31] MEDS: POLYVINYL ALCOHOL OPHTH SOLN 15 ML(LIQUITEARS) OU SCH (09:08)
[2016-08-31] MEDS: VITAMIN D 1,000 INTERNATIONAL UNITS TABLET PO SCH (12:18)
[2016-08-31 14:00] VITALS: BP 158/67
--- NOTE | 2016-08-31 14:22 | IPNPDOC ---
Date Seen The patient was seen on 08/31/16. Progress Note Hospitalist Progress Note Subjective: The patient still complains of sore throat Objective: Physical Exam: Vitals: Vital Sign - Last 24 Hours 08/30/16 08/30/16 08/30/16 08/31/16 14:00 15:36 22:00 06:00 Temp 98.3 98.1 97.1 Pulse 18 65 70 Resp 68 18 16 16 B/P 122/56 144/65 148/66 Pulse Ox 93 94 92 O2 Delivery Room Air Room Air Room Air 08/31/16 08/31/16 08/31/16 06:19 07:30 09:08 Pulse 70 Resp 18 18 B/P 148/66 General: Awake, alert, no acute distress HEENT: Normocephalic, atraumatic, extraocular movements intact CV: Regular rate and rhythm Lungs: Clear to auscultation bilaterally, no wheeze Abd: Soft, Nontender, nondistended Extremities: No edema Neuro: Alert and oriented 3, normal speech Psych: Normal mood and affect Labs and Imaging: Laboratory Tests 08/31/16 06:33 Calcium Level 8.0 L, Aspartate Amino Transf (AST/SGOT) 36, Alanine Aminotransferase (ALT/SGPT) 15, Alkaline Phosphatase 51, Total Bilirubin 0.9, Total Protein 5.2 L, Albumin 2.5 L, Red Blood Count 3.44 L, Mean Corpuscular Volume 91.7, Mean Corpuscular Hemoglobin 30.7, Mean Corpuscular Hemoglobin Concent 33.4, Red Cell Distribution Width 15.1 H, Neutrophils (%) (Auto) 67.9 H , Lymphocytes (%) (Auto) 19.9 L, Monocytes (%) (Auto) 8.3 H, Eosinophils (%) ( Auto) 2.2, Basophils (%) (Auto) 0.2, Neutrophils # (Auto) 5.4, Lymphocytes # ( Auto) 1.7, Monocytes # (Auto) 0.7, Eosinophils # (Auto) 0.2, Basophils # (Auto) 0.0 Assessment and Plan: 85-year-old female with hypertension, hyperlipidemia, chronic kidney disease stage III, history of TIA, chronic thrombocytopenia, macular degeneration who presented after suffering a mechanical fall that resulted in a right hip fracture. The patient is now status post operative repair but is currently having issues with acute blood loss anemia. 1. Right hip fracture: Management as per orthopedics 2. Acute blood loss anemia: The patient's hemoglobin has steadily trended down since admission, and on August 29, she required 2 unit PRBC transfusion when her hemoglobin was 6.8. She has responded well, and hemoglobin is now stable in the 10s. The patient has no gross bleeding, and at this time, I suspect that this is secondary to blood loss during surgery, exacerbated by a supratherapeutic INR. At this time, orthopedics has held her Coumadin, and INR is back down to 1.66. We'll continue to monitor her INR and hemoglobin. 3. Acute on chronic kidney disease: The patient's baseline creatinine appears to be around the low ones. Her creatinine did bump with her drop in hemoglobin, but it has now improved back to baseline after blood transfusion. We'll continue to monitor. 4. Chronic thrombocytopenia: The patient's baseline platelets appears to be in the low 100s range. Her platelets are currently 88. We will also hold her aspirin at this time. 5. Hypertension: Currently stable. Continue home beta refugio. Holding ADARSH inhibitor given acute on chronic kidney disease 6. Hyperlipidemia: Continue home statin. 7. History of TIA: Continue blood pressure control. Continue home statin. Currently holding home aspirin given thrombocytopenia 8. Macular degeneration: Continue home eyedrops. 9. Sore throat: This appears to be secondary to the recent intubation for the surgery. Continue lozenges. Will also start nystatin as there may be component of thrush. DVT prophylaxis: As per orthopedics Dispo: monitor hemoglobin and INR in setting of acute blood loss anemia, thrombocytopenia VS, I&O, 24H, Fishbone VS, I&O, 24H, Fishbone Vital Signs Date Time Temp Pulse Resp B/P Pulse Ox O2 Delivery O2 Flow Rate FiO2 08/31/16 09:08 70 148/66 08/31/16 07:30 18 08/31/16 06:00 97.1 92 Room Air 08/28/16 17:32 0.0 I&O- Last 24 Hours up to 6 AM 08/31/16 06:00 Intake Total 900 ml Output Total 700 ml Balance 200 ml Laboratory Tests 2 08/31/16 06:33: Blood Urea Nitrogen 35H, Creatinine 1.10H, Sodium Level 146H, Potassium Level 4.6, Chloride Level 112H, Carbon Dioxide Level 28, Calcium Level 8.0L, Aspartate Amino Transf (AST/SGOT) 36, Alanine Aminotransferase (ALT/SGPT) 15, Alkaline Phosphatase 51, Total Bilirubin 0.9, Total Protein 5.2L, Albumin 2.5L, Albumin/Globulin Ratio 0.93L, Anion Gap 6L, White Blood Count 7.9, Red Blood Count 3.44L, Hemoglobin 10.6L, Hematocrit 31.6L, Mean Corpuscular Volume 91.7, Mean Corpuscular Hemoglobin 30.7, Mean Corpuscular Hemoglobin Concent 33.4, Red Cell Distribution Width 15.1H, Platelet Count 88L, Neutrophils (%) (Auto) 67.9H , Lymphocytes (%) (Auto) 19.9L, Monocytes (%) (Auto) 8.3H, Eosinophils (%) (Auto ) 2.2, Basophils (%) (Auto) 0.2, Neutrophils # (Auto) 5.4, Lymphocytes # (Auto) 1.7, Monocytes # (Auto) 0.7, Eosinophils # (Auto) 0.2, Basophils # (Auto) 0.0, Glomerular Filtration Rate 50.1, Large Unclassified Cells # 0.1, Large Unclassified Cells % 1.4, Magnesium Level 2.3, Prothromb Time International Ratio 1.66, Prothrombin Time 19.7H Laboratory Tests 08/31/16 06:33 Calcium Level 8.0 L, Aspartate Amino Transf (AST/SGOT) 36, Alanine Aminotransferase (ALT/SGPT) 15, Alkaline Phosphatase 51, Total Bilirubin 0.9, Total Protein 5.2 L, Albumin 2.5 L, Red Blood Count 3.44 L, Mean Corpuscular Volume 91.7, Mean Corpuscular Hemoglobin 30.7, Mean Corpuscular Hemoglobin Concent 33.4, Red Cell Distribution Width 15.1 H, Neutrophils (%) (Auto) 67.9 H , Lymphocytes (%) (Auto) 19.9 L, Monocytes (%) (Auto) 8.3 H, Eosinophils (%) ( Auto) 2.2, Basophils (%) (Auto) 0.2, Neutrophils # (Auto) 5.4, Lymphocytes # ( Auto) 1.7, Monocytes # (Auto) 0.7, Eosinophils # (Auto) 0.2, Basophils # (Auto) 0.0 PANTERA HIGH Aug 31, 2016 14:22
[2016-08-31] MEDS: NYSTATIN 500,000 U/5 ML SUSP UDC SS SCH ×2 (16:34→21:23)
[2016-08-31] MEDS ORDERED: WARFARIN 1.25 MG PER 1/2 TABLET PO ONE (17:00)
[2016-08-31] MEDS: ATORVASTATIN 20 MG TAB PO SCH (21:23)
[2016-08-31 22:00] VITALS: BP 125/64
[2016-09-01 06:00] VITALS: BP 122/64
[2016-09-01 07:16] LABS: BASO % 0.2 % (0.0-1.0); EOS # 0.3 K/mm3 (0.0-0.50); EOS % 3.5 % (0.0-3.0); LARGE UNSTAINED CELL # 0.1 K/mm3 (0.0-0.4); LARGE UNSTAINED CELL % 1.8 % (0.0-4.0); LYMPH # 1.9 K/mm3 (1.5-4.5); LYMPH % 21.9 % (24.0-44.0); MEAN CORPUSCULAR HEMOGLOBIN 30.7 pg (27.0-33.0); MEAN CORPUSCULAR HGB CONC 33.7 g/dl (32.0-36.5); MONO # 0.6 K/mm3 (0.0-0.8); MONO % 7.6 % (0.0-5.0); NEUTROPHILS # 5.2 K/mm3 (1.8-7.7); NEUTROPHILS % 64.9 % (36.0-66.0); PLATELET COUNT, AUTOMATED 110 k/mm3 (150-450); RED CELL DISTRIBUTION WIDTH 14.6 % (11.5-14.5); WHITE BLOOD COUNT 7.9 K/mm3 (4.0-10.0)
[2016-09-01 07:19] LABS: INR 1.55
[2016-09-01 07:37] LABS: ALBUMIN 2.5 GM/DL (3.2-5.2); ALBUMIN/GLOBULIN RATIO 0.86 (1.00-1.93); BILIRUBIN,TOTAL 1.3 MG/DL (0.2-1.0); CALCIUM LEVEL 8.2 MG/DL (8.8-10.2); CREATININE FOR GFR 1.05 MG/DL (0.55-1.02); GLOMERULAR FILTRATION RATE 52.9 (>32); POTASSIUM SERUM 4.3 MEQ/L (3.5-5.1); TOTAL PROTEIN 5.4 GM/DL (6.4-8.2)
[2016-09-01] MEDS: PANTOPRAZOLE 40MG INJ (PROTONIX) (C9113) IV SCH ×2 (09:00→20:46)
[2016-09-01 09:10] VITALS: BP 138/63
[2016-09-01] MEDS: traMADol 50 MG TAB PO PRN (09:36)
[2016-09-01] MEDS: ASPIRIN 81 MG ENTERIC TAB PO SCH (09:45)
[2016-09-01] MEDS: SENOKOT S TAB PO SCH ×2 (09:45→20:46)
[2016-09-01] MEDS: BISOPROLOL FUMARATE 5 MG TAB PO SCH (09:46)
[2016-09-01] MEDS: OCUVITE 1 TAB PO SCH (09:46)
[2016-09-01] MEDS: MIRALAX *UNIT DOSE* 17GM PACKET PO SCH (09:46)
[2016-09-01] MEDS: NYSTATIN 500,000 U/5 ML SUSP UDC SS SCH ×3 (09:46→20:46)
[2016-09-01] MEDS: FLUTICASONE PROP 0.05% NASAL SPRAY 16 GM (FLONASE) SCH (09:48)
[2016-09-01] MEDS: POLYVINYL ALCOHOL OPHTH SOLN 15 ML(LIQUITEARS) OU SCH (09:48)
[2016-09-01] MEDS: ONDANSETRON 4 MG TAB (S0181) PO PRN (11:15)
[2016-09-01 13:24] VITALS: BP 128/58
[2016-09-01] MEDS: VITAMIN D 1,000 INTERNATIONAL UNITS TABLET PO SCH (13:43)
[2016-09-01 14:00] VITALS: BP 153/70
--- NOTE | 2016-09-01 14:42 | IPNPDOC ---
Date Seen The patient was seen on 09/01/16. Progress Note SUBJECTIVE: The patient complains of burning with swallowing reflux-like symptoms as well as some associated nausea since her surgical procedure she otherwise elevated her right lower extremity is painful when trying to bear weight on it and swollen she tells me that she is not any more bleeding that she is aware of. She denies fevers chills chest pain shortness of breath OBJECTIVE: PHYSICAL EXAMINATION: VITAL SIGNS: Please see below. GENERAL: Frail elderly female sitting in a recliner she appears in no acute distress HEENT: Pupils are equally clear round and reactive to light she has moist pedis membranes elevation and CVP CARDIOVASCULAR: S1-S2 regular. RESPIRATORY: Clear to auscultation. ABDOMINAL: Of the present abdomen soft EXTREMITIES: Significant ecchymosis and swelling with right thigh hematoma down past the level of the knee LABORATORY DATA: H&H stable, downtrending BUN and creatinine otherwise Please see below. MICROBIOLOGY: Please see below. IMAGING: No new imaging DVT prophylaxis ordered?: Patient is on Coumadin ASSESSMENT AND PLAN: This is a 85-year-old . Female with a right hip fracture. 1. Right hip fracture: DVT prophylaxis PT perioperative management as per orthopedic surgery 2. Acute blood loss anemia: Secondary to operative repair her H&H is stable she received a total of 2 units of PRBCs thus far she has a fairly significant right thigh hematoma. The patient has been restarted on Coumadin 3. Acute on chronic kidney disease: Likely related to acute blood loss anemia is resolved with transfusion 4. Chronic thrombocytopenia: Appears to be quite stable use of Coumadin cautiously given her thrombocytopenia she will have a high bleeding tendency as ordered and demonstrated with her right hematoma 5. Hypertension: Currently stable. Continue home beta refugio. Can restart ADARSH inhibitor in the near future 6. Hyperlipidemia: Continue home statin. 7. History of TIA: Continue blood pressure control. Continue home statin. Currently holding home aspirin given thrombocytopenia 8. Macular degeneration: Continue home eyedrops. 9. Sore throat: This appears to be secondary to the recent intubation Continue lozenges. And nystatin as there may be component of thrush. The patient may have an elevated of gastritis and as such I'll start her on Carafate IV PPI for the time. Being I will place her on a clear liquid diet and advance her as tolerated starting tomorrow DISPOSITION: The patient will need to tolerate a better diet and be cleared by physical therapy prior to dispositioning. VS, I&O, 24H, Fishbone Vital Signs Date Time Temp Pulse Resp B/P Pulse Ox O2 Delivery O2 Flow Rate FiO2 09/01/16 13:24 97.8 64 16 128/58 92 Room Air 08/28/16 17:32 0.0 I&O- Last 24 Hours up to 6 AM 09/01/16 06:00 Intake Total 360 ml Output Total 700 ml Balance -340 ml Laboratory Tests 2 09/01/16 07:05: Blood Urea Nitrogen 28H, Creatinine 1.05H, Sodium Level 144, Potassium Level 4.3 , Chloride Level 108H, Carbon Dioxide Level 29, Calcium Level 8.2L, Aspartate Amino Transf (AST/SGOT) 37, Alanine Aminotransferase (ALT/SGPT) 17, Alkaline Phosphatase 55, Total Bilirubin 1.3H, Total Protein 5.4L, Albumin 2.5L, Albumin/ Globulin Ratio 0.86L, Anion Gap 7L, White Blood Count 7.9, Red Blood Count 3.61L , Hemoglobin 11.1L, Hematocrit 32.8L, Mean Corpuscular Volume 91.0, Mean Corpuscular Hemoglobin 30.7, Mean Corpuscular Hemoglobin Concent 33.7, Red Cell Distribution Width 14.6H, Platelet Count 110L, Neutrophils (%) (Auto) 64.9, Lymphocytes (%) (Auto) 21.9L, Monocytes (%) (Auto) 7.6H, Eosinophils (%) (Auto) 3.5H, Basophils (%) (Auto) 0.2, Neutrophils # (Auto) 5.2, Lymphocytes # (Auto) 1.9, Monocytes # (Auto) 0.6, Eosinophils # (Auto) 0.3, Basophils # (Auto) 0.0, Glomerular Filtration Rate 52.9, Large Unclassified Cells # 0.1, Large Unclassified Cells % 1.8, Magnesium Level 2.0, Prothromb Time International Ratio 1.55, Prothrombin Time 18.7H Laboratory Tests 09/01/16 07:05 Calcium Level 8.2 L, Aspartate Amino Transf (AST/SGOT) 37, Alanine Aminotransferase (ALT/SGPT) 17, Alkaline Phosphatase 55, Total Bilirubin 1.3 H, Total Protein 5.4 L, Albumin 2.5 L, Red Blood Count 3.61 L, Mean Corpuscular Volume 91.0, Mean Corpuscular Hemoglobin 30.7, Mean Corpuscular Hemoglobin Concent 33.7, Red Cell Distribution Width 14.6 H, Neutrophils (%) (Auto) 64.9, Lymphocytes (%) (Auto) 21.9 L, Monocytes (%) (Auto) 7.6 H, Eosinophils (%) (Auto ) 3.5 H, Basophils (%) (Auto) 0.2, Neutrophils # (Auto) 5.2, Lymphocytes # (Auto ) 1.9, Monocytes # (Auto) 0.6, Eosinophils # (Auto) 0.3, Basophils # (Auto) 0.0 KULDIP HUERTAS MD Sep 01, 2016 14:42
[2016-09-01] MEDS ORDERED: WARFARIN SOD 2.5 MG TAB PO ONE (17:00)
[2016-09-01] MEDS: SUCRALFATE SUSP 1GM/10ML UD PO SCH ×2 (17:07→20:46)
[2016-09-01] MEDS: ATORVASTATIN 20 MG TAB PO SCH (20:46)
[2016-09-01 22:00] VITALS: BP 155/55
[2016-09-01] MEDS: PANTOPRAZOLE 40MG TAB (PROTONIX) PO SCH (22:16)
[2016-09-02 06:00] VITALS: BP 140/65
[2016-09-02 06:53] LABS: INR 1.64
[2016-09-02 06:56] LABS: ALBUMIN 2.3 GM/DL (3.2-5.2); ALBUMIN/GLOBULIN RATIO 0.77 (1.00-1.93); BILIRUBIN,TOTAL 1.6 MG/DL (0.2-1.0); CREATININE FOR GFR 0.98 MG/DL (0.55-1.02); GLOMERULAR FILTRATION RATE 57.3 (>32); TOTAL PROTEIN 5.3 GM/DL (6.4-8.2)
[2016-09-02 06:58] LABS: BASO % 0.3 % (0.0-1.0); EOS # 0.1 K/mm3 (0.0-0.50); EOS % 1.6 % (0.0-3.0); LARGE UNSTAINED CELL # 0.2 K/mm3 (0.0-0.4); LARGE UNSTAINED CELL % 2.1 % (0.0-4.0); LYMPH # 1.2 K/mm3 (1.5-4.5); LYMPH % 16.7 % (24.0-44.0); MEAN CORPUSCULAR HEMOGLOBIN 31.4 pg (27.0-33.0); MEAN CORPUSCULAR HGB CONC 34.3 g/dl (32.0-36.5); MEAN CORPUSCULAR VOLUME 91.6 fl (80.0-96.0); MONO # 0.5 K/mm3 (0.0-0.8); MONO % 6.5 % (0.0-5.0); NEUTROPHILS # 5.1 K/mm3 (1.8-7.7); NEUTROPHILS % 72.8 % (36.0-66.0); PLATELET COUNT, AUTOMATED 117 k/mm3 (150-450); RED CELL DISTRIBUTION WIDTH 14.4 % (11.5-14.5)
[2016-09-02] MEDS: NYSTATIN 500,000 U/5 ML SUSP UDC SS SCH ×3 (07:52→22:44)
[2016-09-02] MEDS: SUCRALFATE SUSP 1GM/10ML UD PO SCH ×4 (07:52→22:44)
[2016-09-02] MEDS: MIRALAX *UNIT DOSE* 17GM PACKET PO SCH (07:52)
[2016-09-02] MEDS: PANTOPRAZOLE 40MG TAB (PROTONIX) PO SCH ×2 (07:53→22:46)
[2016-09-02] MEDS: ASPIRIN 81 MG ENTERIC TAB PO SCH (07:53)
[2016-09-02] MEDS: SENOKOT S TAB PO SCH ×2 (07:53→22:46)
[2016-09-02] MEDS: OCUVITE 1 TAB PO SCH (07:53)
[2016-09-02] MEDS: FLUTICASONE PROP 0.05% NASAL SPRAY 16 GM (FLONASE) SCH (07:54)
[2016-09-02] MEDS: POLYVINYL ALCOHOL OPHTH SOLN 15 ML(LIQUITEARS) OU SCH (07:54)
[2016-09-02] MEDS: BISOPROLOL FUMARATE 5 MG TAB PO SCH (07:55)
[2016-09-02] MEDS: VITAMIN D 1,000 INTERNATIONAL UNITS TABLET PO SCH (12:03)
--- NOTE | 2016-09-02 13:19 | IPNPDOC ---
Date Seen The patient was seen on 09/02/16. Progress Note SUBJECTIVE: The patient reports that burning with swallowing reflux-like symptoms have improved significantly. She denies fevers chills chest pain shortness of breath OBJECTIVE: PHYSICAL EXAMINATION: VITAL SIGNS: Please see below. GENERAL: Frail elderly female sitting in a recliner she appears in no acute distress HEENT: Pupils are equally clear round and reactive to light she has moist pedis membranes elevation and CVP CARDIOVASCULAR: S1-S2 regular chandler systolic murmur. RESPIRATORY: Clear to auscultation. ABDOMINAL: Of the present abdomen soft EXTREMITIES: Significant ecchymosis and swelling with right thigh hematoma down past the level of the knee LABORATORY DATA: H&H stable, downtrending BUN and creatinine otherwise Please see below. MICROBIOLOGY: Please see below. IMAGING: No new imaging DVT prophylaxis ordered?: Patient is on Coumadin ASSESSMENT AND PLAN: This is a 85-year-old Female with a right hip fracture s/p repair complicated by post op acute blood loss anemia. 1. Right hip fracture: DVT prophylaxis PT perioperative management as per orthopedic surgery 2. Acute blood loss anemia: Secondary to operative repair her H&H is stable she received a total of 2 units of PRBCs thus far she has a fairly significant right thigh hematoma. The patient has been restarted on Coumadin h/h is stable. hematoma is resolving 3. Acute on chronic kidney disease: Likely related to acute blood loss anemia is resolved with transfusion 4. Chronic thrombocytopenia: Appears to be quite stable use of Coumadin cautiously given her thrombocytopenia she will have a high bleeding tendency as ordered and demonstrated with her right hematoma 5. Hypertension: Currently stable. Continue home beta refugio. Can restart ADARSH inhibitor in the near future 6. Hyperlipidemia: Continue home statin. 7. History of TIA: Continue blood pressure control. Continue home statin. Currently holding home aspirin given thrombocytopenia 8. Macular degeneration: Continue home eyedrops. 9. Sore throat: This appears to be secondary to the recent intubation Continue lozenges. And nystatin as there may be component of thrush. The patient may have an elevated of gastritis and as such I'll start her on Carafate & PPI for the time. She is improved today, will continue with clears and advance tomorrow. DISPOSITION: The patient will need to tolerate a better diet and be cleared by physical therapy prior to dispo. VS, I&O, 24H, [place] Vital Signs/I&O Vital Signs Date Time Temp Pulse Resp B/P Pulse Ox O2 Delivery O2 Flow Rate FiO2 09/02/16 07:55 70 140/65 09/02/16 06:00 96.7 18 95 Room Air 08/28/16 17:32 0.0 I&O- Last 24 Hours up to 6 AM 09/02/16 06:00 Intake Total 960 ml Output Total 100 ml Balance 860 ml Laboratory Data 24H LABS Laboratory Tests 2 09/02/16 06:21: Blood Urea Nitrogen 25H, Creatinine 0.98, Sodium Level 145, Potassium Level 4.0 , Chloride Level 108H, Carbon Dioxide Level 30, Calcium Level 8.0L, Aspartate Amino Transf (AST/SGOT) 33, Alanine Aminotransferase (ALT/SGPT) 17, Alkaline Phosphatase 50, Total Bilirubin 1.6H, Total Protein 5.3L, Albumin 2.3L, Albumin/ Globulin Ratio 0.77L, Anion Gap 7L, White Blood Count 7.0, Red Blood Count 3.45L , Hemoglobin 10.8L, Hematocrit 31.6L, Mean Corpuscular Volume 91.6, Mean Corpuscular Hemoglobin 31.4, Mean Corpuscular Hemoglobin Concent 34.3, Red Cell Distribution Width 14.4, Platelet Count 117L, Neutrophils (%) (Auto) 72.8H, Lymphocytes (%) (Auto) 16.7L, Monocytes (%) (Auto) 6.5H, Eosinophils (%) (Auto) 1.6, Basophils (%) (Auto) 0.3, Neutrophils # (Auto) 5.1, Lymphocytes # (Auto) 1.2L, Monocytes # (Auto) 0.5, Eosinophils # (Auto) 0.1, Basophils # (Auto) 0.0, Glomerular Filtration Rate 57.3, Large Unclassified Cells # 0.2, Large Unclassified Cells % 2.1, Magnesium Level 2.0, Prothromb Time International Ratio 1.64, Prothrombin Time 19.5H CBC/BMP Laboratory Tests 09/02/16 06:21 Calcium Level 8.0 L, Aspartate Amino Transf (AST/SGOT) 33, Alanine Aminotransferase (ALT/SGPT) 17, Alkaline Phosphatase 50, Total Bilirubin 1.6 H, Total Protein 5.3 L, Albumin 2.3 L, Red Blood Count 3.45 L, Mean Corpuscular Volume 91.6, Mean Corpuscular Hemoglobin 31.4, Mean Corpuscular Hemoglobin Concent 34.3, Red Cell Distribution Width 14.4, Neutrophils (%) (Auto) 72.8 H, Lymphocytes (%) (Auto) 16.7 L, Monocytes (%) (Auto) 6.5 H, Eosinophils (%) (Auto ) 1.6, Basophils (%) (Auto) 0.3, Neutrophils # (Auto) 5.1, Lymphocytes # (Auto) 1.2 L, Monocytes # (Auto) 0.5, Eosinophils # (Auto) 0.1, Basophils # (Auto) 0.0 KULDIP HUERTAS MD Sep 02, 2016 13:19
[2016-09-02 14:00] VITALS: BP 137/66
[2016-09-02] MEDS: traMADol 50 MG TAB PO PRN (16:35)
[2016-09-02] MEDS ORDERED: WARFARIN SOD 2.5 MG TAB PO ONE ×2 (17:00)
[2016-09-02 22:00] VITALS: BP 148/66
[2016-09-02] MEDS: ATORVASTATIN 20 MG TAB PO SCH (22:46)
[2016-09-03] MEDS: ACETAMINOPHEN TAB 650MG DOSE (2X325MG) PO PRN ×2 (02:53→20:32)
[2016-09-03 06:00] VITALS: BP 134/58
[2016-09-03] MEDS: SUCRALFATE SUSP 1GM/10ML UD PO SCH ×4 (06:33→20:32)
[2016-09-03] MEDS: traMADol 50 MG TAB PO PRN (06:33)
[2016-09-03 06:59] LABS: INR 2.66
[2016-09-03 07:03] LABS: BASO % 0.2 % (0.0-1.0); EOS # 0.1 K/mm3 (0.0-0.50); EOS % 1.6 % (0.0-3.0); LARGE UNSTAINED CELL # 0.2 K/mm3 (0.0-0.4); LARGE UNSTAINED CELL % 2.2 % (0.0-4.0); LYMPH # 1.5 K/mm3 (1.5-4.5); LYMPH % 21.5 % (24.0-44.0); MEAN CORPUSCULAR HEMOGLOBIN 30.3 pg (27.0-33.0); MEAN CORPUSCULAR HGB CONC 32.3 g/dl (32.0-36.5); MEAN CORPUSCULAR VOLUME 93.8 fl (80.0-96.0); MONO # 0.5 K/mm3 (0.0-0.8); MONO % 6.9 % (0.0-5.0); NEUTROPHILS # 4.8 K/mm3 (1.8-7.7); NEUTROPHILS % 67.6 % (36.0-66.0); PLATELET COUNT, AUTOMATED 131 k/mm3 (150-450); RED CELL DISTRIBUTION WIDTH 14.2 % (11.5-14.5); WHITE BLOOD COUNT 7.1 K/mm3 (4.0-10.0)
[2016-09-03 07:17] LABS: ALBUMIN 2.2 GM/DL (3.2-5.2); ALBUMIN/GLOBULIN RATIO 0.79 (1.00-1.93); BILIRUBIN,TOTAL 1.7 MG/DL (0.2-1.0); CREATININE FOR GFR 0.97 MG/DL (0.55-1.02)
[2016-09-03] MEDS: NYSTATIN 500,000 U/5 ML SUSP UDC SS SCH ×3 (08:49→20:32)
[2016-09-03] MEDS: POLYVINYL ALCOHOL OPHTH SOLN 15 ML(LIQUITEARS) OU SCH (08:50)
[2016-09-03] MEDS: ONDANSETRON 4 MG TAB (S0181) PO PRN ×2 (08:50→18:43)
[2016-09-03] MEDS: ASPIRIN 81 MG ENTERIC TAB PO SCH (08:50)
[2016-09-03] MEDS: PANTOPRAZOLE 40MG TAB (PROTONIX) PO SCH ×2 (08:50→20:32)
[2016-09-03] MEDS: OCUVITE 1 TAB PO SCH (08:50)
[2016-09-03] MEDS: MIRALAX *UNIT DOSE* 17GM PACKET PO SCH (08:50)
[2016-09-03] MEDS: BISOPROLOL FUMARATE 5 MG TAB PO SCH (08:50)
[2016-09-03] MEDS: SENOKOT S TAB PO SCH ×2 (08:50→20:32)
[2016-09-03] MEDS: FLUTICASONE PROP 0.05% NASAL SPRAY 16 GM (FLONASE) SCH (08:51)
[2016-09-03] MEDS: VITAMIN D 1,000 INTERNATIONAL UNITS TABLET PO SCH (12:17)
[2016-09-03] MEDS ORDERED: PANT40TA2 PO (13:17)
[2016-09-03] MEDS ORDERED: SUCR1SUS PO (13:17)
[2016-09-03 14:00] VITALS: BP 133/64
--- NOTE | 2016-09-03 14:00 | DSES ---
DATE OF ADMISSION: 08/27/2016 DATE OF DISCHARGE: 09/04/2016 DISCHARGE DIAGNOSIS: Right hip fracture status post operative repair. SECONDARY DIAGNOSES: Acute blood loss anemia secondary to surgery. Acute on chronic kidney disease. Chronic thrombocytopenia. Hypertension. Dyslipidemia. Macular degeneration. Gastroesophageal reflux disease (GERD). HOSPITAL COURSE: The patient is an 85-year-old female who initially presented to the hospital status post mechanical fall with a right hip fracture on 08/27/2016. The patient was seen by Dr. Flower and had operative repair on 08/27/2016 as well. Postoperatively, her course was complicated by acute blood loss anemia with a right thigh hematoma. She did receive a total of 2 units of packed red blood cells during her stay with a positive response and remained stable. Postoperatively, the patient had some gastritis associated with nausea and vomiting. This did resolve with a proton pump inhibitor (PPI) twice a day and Carafate. The patient continues to work with physical therapy, however given her significant pain and poor functional status at this time, she is medically stable for discharge to a rehab facility. SUBJECTIVE: Today, the patient tells me that she still has pain when ambulating, but is getting better everyday. She denies chest pain, shortness of breath, fevers, chills, nausea, vomiting, or diarrhea. OBJECTIVE: VITAL SIGNS: Temperature 96.1, pulse 68, respiratory rate 18, blood pressure 134/58, oxygen saturation 96% on room air. GENERAL: She is a frail elderly female sitting up in bed watching television, eating breakfast. She did not appear to be in any acute distress. HEENT: She is frail. She has moist mucous membranes. No elevation of CVP. CARDIOVASCULAR EXAM: S1 and S2 regular. RESPIRATORY EXAM: Clear. ABDOMINAL EXAM: Obese. Bowel sounds are present. The abdomen is soft. EXTREMITIES: She has significant right thigh hematoma posteriorly down below the level of the knee, but it is not tense. No clubbing, cyanosis, or edema. LABORATORY STUDIES: WBC 7.1, hemoglobin 10.2, hematocrit 31.6, stable. Platelet count is 131. Chemistry panel: Sodium 145, potassium 4.0, chloride 109, bicarb 30, BUN 22, creatinine 0.9, INR today is 2.6. ASSESSMENT/PLAN: This is an 85-year-old female status post operative repair of a right hip fracture with hospital course complicated by postop acute blood loss anemia. PROBLEMS: 1. Right hip fracture. Deep vein thrombosis (DVT) prophylaxis, physical therapy, perioperative management as per orthopedic surgery. The patient is currently on deep vein thrombosis (DVT) prophylaxis with Coumadin. She is to followup with Dr. Flower within two weeks. Dressing changes with Optifoam. Coumadin is to continue through 09/24/2016. 2. Acute blood loss anemia secondary to operative repair of her hip. Her hemoglobin and hematocrit have been stable. She received a total of 2 units of packed red blood cells during her stay. She has a fairly significant red hematoma that appears to be resolving. She has been restarted on Coumadin and her hemoglobin and hematocrit has remained stable in the face of this. 3. Acute on chronic kidney disease. Likely secondary to acute blood loss anemia and did resolve with transfusion. The patient's renal function is at her baseline. 4. Chronic thrombocytopenia. Appears stable. She is on aspirin and Coumadin. Her hemoglobin and hematocrit is stable. Will continue to monitor. 5. Hypertension. The patient is on a beta-refugio. Her ADARSH inhibitor will be started upon discharge. 6. Dyslipidemia. The patient is on a statin. 7. History of a TIA. The patient is on antihypertensive as well as a statin and aspirin. 8. Macular degeneration. The patient is on her home eye drops. 9. Gastritis postoperatively. It did resolve with PPI and Carafate. For the time being will keep her on Protonix 40 by mouth twice a day and Carafate with meals and at bedtime. These could likely be tapered down and discontinued in the near future. DISPOSITION: The patient is being discharged to [facility] for continued rehab. She is to followup with Dr. Joon Flower in two weeks. Will followup with her primary care physician within seven days. She is to walk with a walker. Partial weightbearing. She is to have 2 gram sodium diet. Use Optifoam dressing. She is to return to the ER if her symptoms worsen. MEDICATIONS AT TIME OF DISCHARGE: - acetaminophen 650 mg every 4 hours as needed for pain or fever - artificial tears one drop each eye daily - Cepacol one lozenge every 4 hours as needed for sore throat - fluticasone two sprays nasally daily - multivitamin one tablet daily - Zofran 4 mg every 4 hours as needed for nausea or vomiting - Protonix 40 mg twice a day - polyethylene glycol one packet by mouth daily - senna plus 8.6/50 one tablet twice a day - sucralfate 1 gram before meals and at bedtime - vitamin D 2000 units daily - aspirin 81 mg daily - atorvastatin 40 mg at bedtime - bisoprolol 5 mg daily - calcium with vitamin D 600/400 daily at noon - fish oil 1 gram daily at noon - ICaps daily - lisinopril 20 mg daily - Systane 0.4/0.3% one drop each eye four times daily Greater than 30 minutes spent organizing disposition. ADDENDUM: Please seen discharge summary dictated 09/03/2016. The patient remained in the hospital overnight awaiting transport. She did leave on 09/04/2016 without any change to her clinical status or to discharge summary dictated 09/03/2016. Edited 09/04/2016 @ 112[facility]
[2016-09-03] MEDS: ATORVASTATIN 20 MG TAB PO SCH (20:31)
[2016-09-03 22:00] VITALS: BP 134/58
[2016-09-04 06:00] VITALS: BP 132/96
[2016-09-04] MEDS: ACETAMINOPHEN TAB 650MG DOSE (2X325MG) PO PRN (06:28)
[2016-09-04] MEDS: SUCRALFATE SUSP 1GM/10ML UD PO SCH (06:30)
[2016-09-04 06:55] LABS: INR 2.62
[2016-09-04 08:01] VITALS: BP 132/96
[2016-09-04] MEDS: OCUVITE 1 TAB PO SCH (08:01)
[2016-09-04] MEDS: ASPIRIN 81 MG ENTERIC TAB PO SCH (08:01)
[2016-09-04] MEDS: PANTOPRAZOLE 40MG TAB (PROTONIX) PO SCH (08:01)
[2016-09-04] MEDS: MIRALAX *UNIT DOSE* 17GM PACKET PO SCH (08:01)
[2016-09-04] MEDS: NYSTATIN 500,000 U/5 ML SUSP UDC SS SCH (08:01)
[2016-09-04] MEDS: BISOPROLOL FUMARATE 5 MG TAB PO SCH (08:01)
[2016-09-04] MEDS: ONDANSETRON 4 MG TAB (S0181) PO PRN (08:01)
[2016-09-04] MEDS: SENOKOT S TAB PO SCH (08:01)
[2016-09-04] MEDS: POLYVINYL ALCOHOL OPHTH SOLN 15 ML(LIQUITEARS) OU SCH (08:02)
[2016-09-04] MEDS: FLUTICASONE PROP 0.05% NASAL SPRAY 16 GM (FLONASE) SCH (08:02)
== END 2016-09-04 10:06 | DRG 481 ==
LOC: M ED 16:25 → M ED INP 18:07 → M MS5PR 08-28 00:25
PROVIDERS: ADMIT Internal Medicine; ATTEND Hospitalist
PROC: 0QS604Z Reposition Right Upper Femur with Internal Fixation Device, Open Approach (ICD-10-PCS; principal; 2016-08-27 17:47)
PROC: 30253N1 (ICD-10-PCS; 2016-08-29)
DX: S72.141A Displaced intertrochanteric fracture of right femur, initial encounter for closed fracture (principal); N17.9 Acute kidney failure, unspecified; D62 Acute posthemorrhagic anemia; B37.0 Candidal stomatitis; W18.09XA Striking against other object with subsequent fall, initial encounter; Y92.019 Unspecified place in single-family (private) house as the place of occurrence of the external cause; I12.9 Hypertensive chronic kidney disease with stage 1 through stage 4 chronic kidney disease, or unspecified chronic kidney disease; E78.5 Hyperlipidemia, unspecified; N18.3 Chronic kidney disease, stage 3 (moderate); M16.11 Unilateral primary osteoarthritis, right hip; H35.30 Unspecified macular degeneration; J45.909 Unspecified asthma, uncomplicated; D69.6 Thrombocytopenia, unspecified; K29.60 Other gastritis without bleeding; M54.32 Sciatica, left side; M81.0 Age-related osteoporosis without current pathological fracture; Z86.73 Personal history of transient ischemic attack (TIA), and cerebral infarction without residual deficits; Z79.82 Long term (current) use of aspirin; Z79.899 Other long term (current) drug therapy; Y99.8 Other external cause status

== ENCOUNTER → 2016-11-24 | Outpatient (REF) | payer MEDICARE ==
[~2016-11-24] MED LIST: AKWASOL OU; ASPI1TAB PO; ATOR40TA PO; BISO5TAB5 PO; CALCTAB68 PO; CEPA1LOZ2 PO; FISH1000 PO; FLUTISP; ICAPCAP PO; LISI-538 PO; MAPA325T2 PO; MELO15TA4 PO; MOBI15TA PO; MOME50SP; OCUVTA PO; ONDA1TAB15 PO; PANT40TA2 PO; PEG1POW PO; SENN1TAB2 PO; SUCR1SUS PO; SYST1SOL OU; TRAM50TA2 PO; VITA200015 PO; VITAD1000T PO
[2016-11-25 12:30] LABS: ALBUMIN 3.6 GM/DL (3.2-5.2); ALBUMIN/GLOBULIN RATIO 1.09 (1.00-1.93); BILIRUBIN,TOTAL 0.4 MG/DL (0.2-1.0); CALCIUM LEVEL 9.2 MG/DL (8.8-10.2); CREATININE FOR GFR 1.09 MG/DL (0.55-1.02); GLOMERULAR FILTRATION RATE 50.5 (>32); POTASSIUM SERUM 4.1 MEQ/L (3.5-5.1); TOTAL PROTEIN 6.9 GM/DL (6.4-8.2)
[2016-11-25 12:44] LABS: MEAN CORPUSCULAR HEMOGLOBIN 32.5 pg (27.0-33.0); MEAN CORPUSCULAR HGB CONC 33.4 g/dl (32.0-36.5); MEAN CORPUSCULAR VOLUME 97.3 fl (80.0-96.0); RED CELL DISTRIBUTION WIDTH 12.6 % (11.5-14.5); WHITE BLOOD COUNT 7.6 K/mm3 (4.0-10.0)
== END ==
LOC: M SFHCCLAY 14:42
PROVIDERS: ATTEND Internal Medicine
DX: D64.9 Anemia, unspecified (principal); I10 Essential (primary) hypertension; E78.00 Pure hypercholesterolemia, unspecified
CPT/HCPCS: 80053; 80061; 82607; 83540; 84443; 85027; G0463

== ENCOUNTER → 2017-05-06 | Outpatient (REF) | payer MEDICARE ==
[~2017-05-06] MED LIST changes: -ATOR40TA PO; +ATOR40TA75 PO; -ONDA1TAB15 PO; +ONDA4TAB5 PO
== END ==
LOC: M SFHCCLAY 11:14
PROVIDERS: ATTEND Family Medicine
DX: R35.0 Frequency of micturition (principal)

== ENCOUNTER → 2017-05-28 | Outpatient (REF) | payer MEDICARE ==
[2017-05-28 18:17] LABS: BASO % 0.3 % (0.0-1.0); EOS # 0.1 10^3/uL (0.0-0.50); EOS % 1.3 % (0.0-3.0); IMMATURE GRANULOCYTE % 0.3 % (0-0); LYMPH # 1.6 10^3/uL (1.5-4.5); LYMPH % 20.6 % (24.0-44.0); MEAN CORPUSCULAR HEMOGLOBIN 31.6 pg (27.0-33.0); MEAN CORPUSCULAR HGB CONC 32.7 g/dl (32.0-36.5); MEAN CORPUSCULAR VOLUME 96.8 fl (80.0-96.0); MONO # 0.9 10^3/uL (0.0-0.8); MONO % 11.5 % (0.0-5.0); PLATELET COUNT, AUTOMATED 116 10^3/uL (150-450); WHITE BLOOD COUNT 7.6 10^3/uL (4.0-10.0)
[2017-05-28 18:41] LABS: ALBUMIN 3.8 GM/DL (3.2-5.2); ALBUMIN/GLOBULIN RATIO 1.12 (1.00-1.93); BILIRUBIN,TOTAL 0.6 MG/DL (0.2-1.0); CREATININE FOR GFR 1.24 MG/DL (0.55-1.02); GLOMERULAR FILTRATION RATE 43.6 (>32); POTASSIUM SERUM 4.2 MEQ/L (3.5-5.1); TOTAL PROTEIN 7.2 GM/DL (6.4-8.2)
== END ==
LOC: M SFHCCLAY 11:06
PROVIDERS: ATTEND Family Medicine
DX: I10 Essential (primary) hypertension (principal); Z23 Encounter for immunization
CPT/HCPCS: 80053; 85025; 90662; G0008; G0463

== ENCOUNTER → 2017-08-26 | Outpatient (REF) | payer MEDICARE ==
[2017-08-26 17:40] LABS: ALBUMIN 4.1 GM/DL (3.2-5.2); ALBUMIN/GLOBULIN RATIO 1.28 (1.00-1.93); ALKALINE PHOSPHATASE 83 U/L (45-117); ALT/SGPT 25 U/L (12-78); ANION GAP 7 MEQ/L (8-16); AST/SGOT 26 U/L (7-37); BILIRUBIN,TOTAL 0.8 MG/DL (0.2-1.0); BLOOD UREA NITROGEN 31 MG/DL (7-18); CALCIUM LEVEL 9.2 MG/DL (8.8-10.2); CARBON DIOXIDE LEVEL 28 MEQ/L (21-32); CHLORIDE LEVEL 107 MEQ/L (98-107); CREATININE FOR GFR 1.39 MG/DL (0.55-1.30); GLOMERULAR FILTRATION RATE 38.2 (>32); GLUCOSE, FASTING 91 MG/DL (70-100); POTASSIUM SERUM 4.5 MEQ/L (3.5-5.1); SODIUM LEVEL 142 MEQ/L (136-145); TOTAL PROTEIN 7.3 GM/DL (6.4-8.2); URIC ACID 5.9 MG/DL (2.6-6.0)
== END ==
LOC: M SFHCCLAY 10:53
DX: I10 Essential (primary) hypertension (principal); M79.671 Pain in right foot; M79.672 Pain in left foot
CPT/HCPCS: 84550

== ENCOUNTER → 2018-04-25 | Outpatient (REF) | payer MEDICARE ==
[2018-04-25 13:15] LABS: ALBUMIN 3.7 GM/DL (3.2-5.2); ALKALINE PHOSPHATASE 80 U/L (45-117); ALT/SGPT 28 U/L (12-78); ANION GAP 9 MEQ/L (8-16); AST/SGOT 28 U/L (7-37); BILIRUBIN,TOTAL 0.7 MG/DL (0.2-1.0); BLOOD UREA NITROGEN 25 MG/DL (7-18); CALCIUM LEVEL 8.6 MG/DL (8.8-10.2); CARBON DIOXIDE LEVEL 28 MEQ/L (21-32); CHLORIDE LEVEL 105 MEQ/L (98-107); CHOLESTEROL LEVEL 181 MG/DL (<200); CHOLESTEROL RISK RATIO 2.207 (<5); GLOMERULAR FILTRATION RATE 45.1 (>32); GLUCOSE, FASTING 85 MG/DL (70-100); HDL CHOLESTEROL 82 MG/DL (>40); LDL CHOLESTEROL 80 MG/DL (<100); NON-HDL-C 99 MG/DL; POTASSIUM SERUM 3.7 MEQ/L (3.5-5.1); SODIUM LEVEL 142 MEQ/L (136-145); TOTAL PROTEIN 7.4 GM/DL (6.4-8.2); TRIGLYCERIDES LEVEL 97 MG/DL (<150)
== END ==
LOC: M SFHCCLAY 09:08
DX: I10 Essential (primary) hypertension (principal); E78.2 Mixed hyperlipidemia
CPT/HCPCS: 80053

== ENCOUNTER → 2019-04-10 | Outpatient (REF) | payer MEDICARE ==
[~2019-04-10] MED LIST changes: -ASPI1TAB PO; +ASPI81TA26 PO; -BISO5TAB5 PO; +BISO5TAB9 PO; +CHOL100029 PO; +MELO15TA28 PO; -MELO15TA4 PO; -PANT40TA2 PO; +PANT40TA3 PO; -SENN1TAB2 PO; +SENN1TAB40 PO; -VITAD1000T PO
[2019-04-10 17:21] LABS: BASO % 0.2 % (0.0-1.0); EOS % 0.3 % (0.0-3.0); HEMATOCRIT 42.7 % (36.0-47.0); HEMOGLOBIN 13.8 g/dl (12.0-15.5); LYMPH % 18.4 % (24.0-44.0); MEAN CORPUSCULAR HGB CONC 32.3 g/dl (32.0-36.5); MEAN CORPUSCULAR VOLUME 99.1 fl (80.0-96.0); MONO # 0.9 10^3/uL (0.0-0.8); MONO % 8.4 % (0.0-5.0); NEUTROPHILS # 7.9 10^3/uL (1.5-8.5); NEUTROPHILS % 72.2 % (36.0-66.0); PLATELET COUNT, AUTOMATED 141 10^3/uL (150-450); RED BLOOD COUNT 4.31 10^6/uL (4.00-5.40)
[2019-04-10 17:35] LABS: ALBUMIN 3.9 GM/DL (3.2-5.2); BILIRUBIN,TOTAL 0.6 MG/DL (0.2-1.0); CALCIUM LEVEL 9.2 MG/DL (8.8-10.2); CHOLESTEROL RISK RATIO 2.265 (<5); CREATININE FOR GFR 1.15 MG/DL (0.55-1.30); GLOMERULAR FILTRATION RATE 47.3 (>32); POTASSIUM SERUM 4.3 MEQ/L (3.5-5.1); TOTAL PROTEIN 6.7 GM/DL (6.4-8.2)
== END ==
LOC: M SFHCCLAY 13:29
PROVIDERS: ATTEND Family Medicine
DX: I10 Essential (primary) hypertension (principal); E78.2 Mixed hyperlipidemia; Z23 Encounter for immunization
CPT/HCPCS: 80053; 80061; 85025; 90732; G0009; G0463